=== PATIENT | male | born 1960 | race Caucasian/White ===

== ENCOUNTER 2017-08-25 14:22 | Inpatient (IN) ==
[2017-08-25] MEDS ORDERED: HYDROmorphone 2 MG/1 ML VIAL IV STA (14:43)
[2017-08-25] MEDS ORDERED: ONDANSETRON 4 MG/2 ML VIAL IV STA (14:43)
[2017-08-25 14:55] LABS: Basophils % 0.4 % (0.0-0.8); Eosinophils % 0.4 % (0.00-10.9); Hematocrit 43.4 VOL% (42.0-52.0); Hemoglobin 14.7 GM/DL (14.0-18.0); Immature Granulocytes % 0.4 %; Immature Granulocytes Absolute 0.03 #; Lymphocytes # 1.1 10*3/uL (1.4-4.0); Lymphocytes % 14.3 % (21.2-54.2); Mean Corpuscular HGB Conc 33.9 GM/DL (32-36); Mean Corpuscular Hemoglobin 29 PG (27-34); Mean Corpuscular Volume 86.6 FL (87-102); Mean Platelet Volume 12.4 FL (9.6-12.0); Monocytes # 0.5 10*3/uL (0.11-0.8); Neutrophils % 78.5 % (38.7-73.9); Platelet Count 159 T/CUMM (130-400); Red Blood Count 5.01 MC/CUMM (3.8-5.5); Red Cell Distribution Width 15.2 % (9.3-17.3); White Blood Count 7.7 T/CUMM (4-12)
[2017-08-25 15:04] LABS: INR 1.3; PT Patient Result 13.4 SECS; Partial Thromboplastin Time 31.7 SECS (0-40)
[2017-08-25 15:16] LABS: Albumin 3.7 G/DL (3.4-5.0); Bilirubin,Total 0.5 MG/DL (0.2-1.0); Osmolality,Calculated 285.1 MOS/KG (273-304); Potassium 3.8 MMOL/L (3.5-5.1); Total Protein 6.4 G/DL (6.4-8.3); Uric Acid 6.1 MG/DL (3.5-7.2)
[2017-08-25] MEDS ORDERED: HYDROmorphone 2 MG/1 ML VIAL ONE (16:02)
[2017-08-25] MEDS ORDERED: ONDANSETRON 4 MG/2 ML VIAL ONE (16:02)
[2017-08-25] MEDS ORDERED: MAGNESIUM HYDROXIDE SUSP 30 ML UDCUP PO PRN (16:21)
[2017-08-25] MEDS ORDERED: PROMETHAZINE INJ 25 MG in SODIUM CHLORIDE 0.9% 50 ML IV PRN (16:21)
[2017-08-25] MEDS ORDERED: ACETAMINOPHEN 325 MG TABLET PO PRN (16:21)
[2017-08-25] MEDS ORDERED: ONDANSETRON 4 MG/2 ML VIAL IV PRN (16:21)
[2017-08-25] MEDS ORDERED: diphenhydrAMINE CAP 25 MG CAPSULE PO PRN (16:21)
[2017-08-25] MEDS ORDERED: chlorproMAZINE INJ 50 MG in SODIUM CHLORIDE 0.9% 100 ML IV PRN (16:21)
[2017-08-25] MEDS ORDERED: traMADol 50 MG TABLET PO PRN (16:21)
[2017-08-25] MEDS ORDERED: chlorproMAZINE 25 MG TABLET PO PRN (16:21)
[2017-08-25] MEDS ORDERED: LACTULOSE 20 GM/30 ML UDCUP PO PRN (16:21)
[2017-08-25] MEDS ORDERED: MYLANTA/LIDO VISC 2:1 300 ML BOTTLE SWISH/SWAL PRN (16:21)
[2017-08-25] MEDS ORDERED: LOPERAMIDE 2 MG CAPSULE PO PRN ×2 (16:21)
[2017-08-25] MEDS ORDERED: MYLANTA/LIDO VISC 2:1 300 ML BOTTLE SWISH/SPIT PRN (16:21)
[2017-08-25] MEDS ORDERED: TEMAZEPAM 7.5 MG CAPSULE PO PRN (16:21)
[2017-08-25] MEDS ORDERED: BENZTROPINE 2 MG/2 ML AMP IV PRN (16:21)
[2017-08-25] MEDS ORDERED: chlorproMAZINE INJ 25 MG in SODIUM CHLORIDE 0.9% 100 ML IV PRN (16:21)
[2017-08-25] MEDS ORDERED: guaiFENesin 200 MG/10 ML UDCUP PO PRN (16:21)
[2017-08-25] MEDS ORDERED: ALUMINUM/MAGNES/SIMETH MAX STR 30 ML UDCUP PO PRN (16:21)
[2017-08-25] MEDS ORDERED: DEXTROSE 5% NACL 0.45% 1,000 ML IV SCH (17:00)
[2017-08-25 19:23] LABS: Apearance,Urine CLEAR (Clear); Bilirubin,Urine Negative (Negative); Blood, Urine Negative (Negative); Glucose,Urine (UA) Negative (Negative); Ketones,Urine Negative (Negative); Nitrite,Urine Negative (Negative); Protein,Urine Negative; RBC,Urine 2 /HPF (0-4); Squamous Epithelial Cell,Urine Occasional /HPF (0-10); Urine Color Yellow (Yellow); Urine Specific Gravity 1.057 (1.001-1.035); Urine Urobilinogen < 2.0 EU/DL (0.2-1.0); WBC,Urine 2 /HPF (0-6)
[2017-08-25] MEDS ORDERED: HYDROmorphone 2 MG/1 ML VIAL IV PRN (23:33)
[2017-08-26 06:12] LABS: Albumin 3.5 G/DL (3.4-5.0); Bilirubin,Total 0.8 MG/DL (0.2-1.0); Calcium 8.1 MG/DL (8.5-10.1); Osmolality,Calculated 279.4 MOS/KG (273-304); Potassium 4.1 MMOL/L (3.5-5.1); Total Protein 6.1 G/DL (6.4-8.3)
[2017-08-26] MEDS: DEXTROSE 5% NACL 0.45% 1,000 ML IV SCH ×3 (06:44→22:11)
[2017-08-26 07:09] LABS: Basophils # 0.1 10*3/uL (0.0-0.2); Basophils % 0.7 % (0.0-0.8); Eosinophils # 0.1 10*3/uL (0.0-0.87); Hematocrit 43.5 VOL% (42.0-52.0); Hemoglobin 14.3 GM/DL (14.0-18.0); Immature Granulocytes % 0.6 %; Immature Granulocytes Absolute 0.04 #; Lymphocytes # 1.1 10*3/uL (1.4-4.0); Lymphocytes % 15.9 % (21.2-54.2); Mean Corpuscular HGB Conc 32.9 GM/DL (32-36); Mean Corpuscular Hemoglobin 29 PG (27-34); Mean Corpuscular Volume 88.6 FL (87-102); Mean Platelet Volume 12.1 FL (9.6-12.0); Monocytes # 0.7 10*3/uL (0.11-0.8); Neutrophils % 70.8 % (38.7-73.9); Platelet Count 142 T/CUMM (130-400); Red Blood Count 4.91 MC/CUMM (3.8-5.5); Red Cell Distribution Width 15.4 % (9.3-17.3); White Blood Count 7.1 T/CUMM (4-12)
[2017-08-26] MEDS ORDERED: LIDOCAINE 1%/EPI INJ 20 ML VIAL MISC INJ ONE (07:24)
[2017-08-26] MEDS ORDERED: LIDOCAINE 1% 20 ML VIAL MISC INJ ONE (07:27)
[2017-08-26] MEDS: ALPRAZolam 0.25 MG TABLET PO PRN (14:00)
[2017-08-26] MEDS ORDERED: FUROSEMIDE 40 MG TABLET PO ONE (20:09)
[2017-08-26] MEDS: GABAPENTIN 300 MG CAPSULE PO SCH (20:32)
[2017-08-27 05:15] LABS: Basophils % 0.4 % (0.0-0.8); Eosinophils # 0.2 10*3/uL (0.0-0.87); Eosinophils % 2.3 % (0.00-10.9); Hematocrit 41.2 VOL% (42.0-52.0); Hemoglobin 13.9 GM/DL (14.0-18.0); Immature Granulocytes % 0.3 %; Immature Granulocytes Absolute 0.02 #; Lymphocytes # 0.8 10*3/uL (1.4-4.0); Lymphocytes % 11.5 % (21.2-54.2); Mean Corpuscular HGB Conc 33.7 GM/DL (32-36); Mean Corpuscular Hemoglobin 29 PG (27-34); Mean Corpuscular Volume 86.7 FL (87-102); Mean Platelet Volume 12.6 FL (9.6-12.0); Monocytes # 0.8 10*3/uL (0.11-0.8); Monocytes % 10.6 % (1.7-12.7); Neutrophils # 5.3 10*3/uL (1.4-7.4); Neutrophils % 74.9 % (38.7-73.9); Platelet Count 147 T/CUMM (130-400); Red Blood Count 4.75 MC/CUMM (3.8-5.5); Red Cell Distribution Width 15.1 % (9.3-17.3); White Blood Count 7.1 T/CUMM (4-12)
[2017-08-27 05:55] LABS: Albumin 3.4 G/DL (3.4-5.0); Bilirubin,Total 0.4 MG/DL (0.2-1.0); Calcium 8.1 MG/DL (8.5-10.1); Osmolality,Calculated 283.1 MOS/KG (273-304); Potassium 3.7 MMOL/L (3.5-5.1)
[2017-08-27] MEDS: ALPRAZolam 0.25 MG TABLET PO PRN (09:53)
[2017-08-27] MEDS: GABAPENTIN 300 MG CAPSULE PO SCH ×2 (09:53→20:21)
[2017-08-27] MEDS: DEXTROSE 5% NACL 0.45% 1,000 ML IV SCH (11:41)
[2017-08-28] MEDS: DEXTROSE 5% NACL 0.45% 1,000 ML IV SCH (01:25)
[2017-08-28 06:21] LABS: Basophils # 0.1 10*3/uL (0.0-0.2); Basophils % 0.8 % (0.0-0.8); Eosinophils # 0.2 10*3/uL (0.0-0.87); Eosinophils % 3.3 % (0.00-10.9); Hematocrit 41.5 VOL% (42.0-52.0); Hemoglobin 14.4 GM/DL (14.0-18.0); Immature Granulocytes % 0.3 %; Immature Granulocytes Absolute 0.02 #; Lymphocytes # 0.7 10*3/uL (1.4-4.0); Lymphocytes % 11.6 % (21.2-54.2); Mean Corpuscular HGB Conc 34.7 GM/DL (32-36); Mean Corpuscular Hemoglobin 30 PG (27-34); Mean Corpuscular Volume 85.4 FL (87-102); Mean Platelet Volume 12.4 FL (9.6-12.0); Monocytes # 0.8 10*3/uL (0.11-0.8); Neutrophils # 4.6 10*3/uL (1.4-7.4); Platelet Count 155 T/CUMM (130-400); Red Blood Count 4.86 MC/CUMM (3.8-5.5); Red Cell Distribution Width 14.8 % (9.3-17.3); White Blood Count 6.4 T/CUMM (4-12)
[2017-08-28 06:57] LABS: Albumin 3.3 G/DL (3.4-5.0); Bilirubin,Total 0.7 MG/DL (0.2-1.0); Calcium 8.1 MG/DL (8.5-10.1); Potassium 3.7 MMOL/L (3.5-5.1); Total Protein 5.7 G/DL (6.4-8.3)
[2017-08-28] MEDS: GABAPENTIN 300 MG CAPSULE PO SCH (08:54)
[2017-08-28 09:37] VITALS: BP 138/84
== END 2017-08-28 11:25 | disposition home or self-care (01) | DRG 552 ==
LOC: EDUNIT# → N.ED 14:22 → N.EDINP 16:21 → N.4E 17:25
PROVIDERS: ADMIT Specialist; ATTEND Specialist

== ENCOUNTER 2020-05-17 13:20 | Inpatient (IN) ==
[2020-05-18] MEDS ORDERED: GLUCAGON 1 MG VIAL IM PRN ×2 (09:12)
[2020-05-18] MEDS ORDERED: CEFUROXIME INJ 1,500 MG in SYRINGE 1 EACH IV ONE (09:12)
[2020-05-18] MEDS ORDERED: DEXTROSE 50% 25 GM/50 ML VIAL IV PRN ×2 (09:12)
[2020-05-18] MEDS ORDERED: SODIUM CHLORIDE 0.9% 1,000 ML IV SCH (09:30)
[2020-05-18 10:12] LABS: Basophils % 0.5 % (0.0-0.8); Eosinophils # 0.1 10*3/uL (0.0-0.87); Eosinophils % 1.5 % (0.00-10.9); Hematocrit 51.7 VOL% (42.0-52.0); Hemoglobin 17.1 GM/DL (14.0-18.0); Immature Granulocytes % 0.6 %; Immature Granulocytes Absolute 0.05 #; Lymphocytes # 1.3 10*3/uL (1.4-4.0); Lymphocytes % 16.3 % (21.2-54.2); Mean Corpuscular HGB Conc 33.1 GM/DL (32-36); Mean Corpuscular Volume 89.8 FL (87-102); Mean Platelet Volume 11.9 FL (9.6-12.0); Monocytes % 10.7 % (1.7-12.7); Neutrophils % 70.4 % (38.7-73.9); Platelet Count 173 T/CUMM (130-400); Red Blood Count 5.76 MC/CUMM (3.8-5.5); Red Cell Distribution Width 14.6 % (9.3-17.3)
[2020-05-18 10:52] LABS: Albumin 3.9 G/DL (3.4-5.0); Bilirubin,Total 0.5 MG/DL (0.2-1.0); Calcium 9.8 MG/DL (8.5-10.1); Osmolality,Calculated 278.8 MOS/KG (273-304); Total Protein 7.7 G/DL (6.4-8.3)
[2020-05-18] MEDS ORDERED: DIAZEPAM 5 MG TABLET PO ONE (11:36)
[2020-05-18] MEDS ORDERED: FAMOTIDINE 20 MG TABLET PO ONE (11:36)
[2020-05-18] MEDS ORDERED: ZALEPLON 5 MG CAPSULE PO PRN (12:16)
[2020-05-18] MEDS ORDERED: CLORAZEPATE 3.75 MG TABLET PO PRN (12:16)
[2020-05-18] MEDS ORDERED: NITROGLYCERIN SL 0.4 MG TABLET SL PRN (12:20)
[2020-05-18] MEDS ORDERED: ONDANSETRON 4 MG/2 ML VIAL IV PRN (12:20)
[2020-05-18] MEDS ORDERED: MORPHINE 4 MG/1 ML VIAL IV PRN (12:20)
[2020-05-18] MEDS ORDERED: hydrALAZINE 20 MG/1 ML VIAL IV PRN (12:21)
[2020-05-18 14:07] LABS: ABG Base Excess 2.6 MMOL/L (-2.5-2.5); ABG HCO3 27.1 MMOL/L (20-26); ABG PCO2 41.5 MM HG (35-48); ABG PH 7.433 (7.35-7.45); ABG TCO2 28.4 MMOL/L (23-27)
[2020-05-18] MEDS: INSULIN REGULAR 100 UNIT/ML SUBCUT SCH ×2 (16:45→20:41)
[2020-05-18] MEDS: CHLORHEXIDINE 4% SOLN 118 ML BOTTLE TOP SCH ×2 (18:23→22:27)
[2020-05-18] MEDS: CHLORHEXIDINE 0.12% ORAL RINSE 60 ML BOTTLE SWISH/SPIT SCH (20:04)
[2020-05-19] MEDS ORDERED: VANCOMYCIN 500 MG VIAL ONE (05:19)
[2020-05-19] MEDS ORDERED: VANCOMYCIN 1,000 MG VIAL ONE (05:19)
[2020-05-19] MEDS ORDERED: PAPAVERINE 60 MG/2 ML VIAL ONE (05:25)
[2020-05-19] MEDS ORDERED: DIAZEPAM 5 MG TABLET PO ONE (06:00)
[2020-05-19] MEDS ORDERED: CEFUROXIME INJ 1,500 MG in SYRINGE 1 EACH IV ONE (06:00)
[2020-05-19] MEDS ORDERED: FAMOTIDINE 20 MG TABLET PO ONE (06:00)
[2020-05-19] MEDS ORDERED: SUFentanil 250 MCG/5 ML AMP ONE (06:05)
[2020-05-19] MEDS ORDERED: MINERAL OIL/PETROLATUM OPH OINT 3.5 GM TUBE ONE (06:06)
[2020-05-19] MEDS ORDERED: MIDAZOLAM 10 MG/2 ML VIAL ONE (06:06)
[2020-05-19] MEDS: INSULIN REGULAR 100 UNIT/ML SUBCUT SCH ×4 (07:30→19:26)
[2020-05-19 07:52] LABS: ABG Base Excess 2.1 MMOL/L (-2.5-2.5); ABG HCO3 26.3 MMOL/L (20-26); ABG PH 7.436 (7.35-7.45); ABG TCO2 22.2 MMOL/L (23-27); Glucose Heart Surgery 110 MG/DL (74-106); Ionized Calcium Arterial 1.16 MMOL/L (1.21-1.46); PH Patient Temp Arterial 7.436; Patient Temperature 37 CELCIUS; Potassium Heart/CVR 3.8 MMOL/L (3.5-5.1); Sodium Heart/CVR 139 MMOL/L (135-145)
[2020-05-19 08:23] LABS: Apearance,Urine CLEAR (Clear); Bilirubin,Urine Negative (Negative); Blood, Urine Negative (Negative); Glucose,Urine (UA) Negative (Negative); Ketones,Urine Negative (Negative); Nitrite,Urine Negative (Negative); Protein,Urine Negative; RBC,Urine <1 /HPF (0-4); Urine Color Yellow (Yellow); Urine Specific Gravity 1.011 (1.001-1.035); Urine Urobilinogen < 2.0 EU/DL (0.2-1.0); WBC,Urine <1 /HPF (0-6)
[2020-05-19] MEDS: CHLORHEXIDINE 4% SOLN 118 ML BOTTLE TOP SCH (09:00)
[2020-05-19] MEDS: CHLORHEXIDINE 0.12% ORAL RINSE 60 ML BOTTLE SWISH/SPIT SCH ×2 (09:00→21:20)
[2020-05-19 09:36] LABS: Hematocrit Heart Surgery 32.8 PERCENT (42-52); Hemoglobin Heart Surgery 10.6 G/DL (14.0-18.0); PCO2 Patient Temp Venous 35.5 MM HG; PH Patient Temp Venous 7.472; PO2 Patient Temp Venous 42.5 MM HG; Potassium Heart/CVR 4.1 MMOL/L (3.5-5.1); VBG Base Excess 2.5 MEQ/L (0-4); VBG HCO3 26.4 MEQ/L (24-28); VBG Oxygen Saturation 84.3 %; VBG PCO2 39.2 MMHG (41-51); VBG PH 7.442; VBG PO2 48.8 MMHG (17-40)
[2020-05-19] MEDS ORDERED: diphenhydrAMINE 50 MG/1 ML VIAL ONE (10:03)
[2020-05-19] MEDS ORDERED: FAMOTIDINE 20 MG/2 ML VIAL IV ONE (10:03)
[2020-05-19 10:06] LABS: Hematocrit Heart Surgery 32.9 PERCENT (42-52); Hemoglobin Heart Surgery 10.7 G/DL (14.0-18.0); PCO2 Patient Temp Venous 35.5 MM HG; PH Patient Temp Venous 7.467; PO2 Patient Temp Venous 44.2 MM HG; Potassium Heart/CVR 4.4 MMOL/L (3.5-5.1); VBG Base Excess 2.1 MEQ/L (0-4); VBG Oxygen Saturation 79.8 %; VBG PCO2 37.2 MMHG (41-51); VBG PH 7.452; VBG PO2 47.3 MMHG (17-40)
[2020-05-19 10:31] LABS: ABG Base Excess 0.8 MMOL/L (-2.5-2.5); ABG HCO3 25.2 MMOL/L (20-26); ABG PH 7.443 (7.35-7.45); ABG TCO2 21.9 MMOL/L (23-27); Glucose Heart Surgery 199 MG/DL (74-106); Hematocrit Heart Surgery 34.8 PERCENT (42-52); Hemoglobin Heart Surgery 11.3 G/DL (14.0-18.0); Ionized Calcium Arterial 1.19 MMOL/L (1.21-1.46); PH Patient Temp Arterial 7.443; Patient Temperature 37 CELCIUS; Potassium Heart/CVR 3.8 MMOL/L (3.5-5.1); Sodium Heart/CVR 131 MMOL/L (135-145)
[2020-05-19] MEDS ORDERED: MANNITOL 100 GM/500 ML BAG IV ONE (10:40)
[2020-05-19] MEDS ORDERED: DEXTROSE 5% KCL 20 MEQ 20 MEQ/1,000 ML BAG IV ONE (10:40)
[2020-05-19] MEDS ORDERED: LIDOCAINE 2% 5 ML VIAL ONE (10:40)
[2020-05-19] MEDS ORDERED: SODIUM BICARBONATE 50 MEQ/50 ML VIAL IV ONE ×2 (10:41→11:02)
[2020-05-19] MEDS ORDERED: methylPREDNISolone SOD SUC 1,000 MG/8 ML VIAL ONE (10:41)
[2020-05-19] MEDS ORDERED: PROTAMINE SULFATE 50 MG/5 ML VIAL IV ONE ×2 (10:41→11:41)
[2020-05-19] MEDS ORDERED: FUROSEMIDE 20 MG/2 ML VIAL ONE (10:41)
[2020-05-19] MEDS ORDERED: MAGNESIUM SULFATE 5 GM/10 ML VIAL IV ONE (10:41)
[2020-05-19] MEDS ORDERED: ALBUMIN 25% 25 GM/100 ML VIAL IV ONE (10:41)
[2020-05-19] MEDS ORDERED: PROTAMINE SULFATE 250 MG/25 ML VIAL IV ONE (10:41)
[2020-05-19] MEDS ORDERED: HEPARIN 10,000 UNIT/10 ML VIAL ONE (10:41)
[2020-05-19] MEDS ORDERED: PHENYLEPHRINE DRIP 40 MG/250 ML PREMIX IV ONE (11:02)
[2020-05-19] MEDS ORDERED: NITROPRUSSIDE 50 MG/2 ML VIAL ONE (11:02)
[2020-05-19] MEDS ORDERED: CALCIUM CHLORIDE 1,000 MG/10 ML SYRINGE IV ONE (11:02)
[2020-05-19] MEDS ORDERED: POTASSIUM CHLORIDE RIDER 100 ML IV ONE ×2 (11:02→12:05)
[2020-05-19] MEDS ORDERED: ONDANSETRON 4 MG/2 ML VIAL IV PRN (11:35)
[2020-05-19] MEDS ORDERED: NITROPRUSSIDE 100 MG in DEXTROSE 5% 250 ML IV PRN (11:35)
[2020-05-19] MEDS ORDERED: VECURONIUM 10 MG VIAL IV PRN ×2 (11:35)
[2020-05-19] MEDS ORDERED: MIDAZOLAM 2 MG/2 ML VIAL IV PRN (11:35)
[2020-05-19] MEDS ORDERED: CALCIUM CHLORIDE 1,000 MG/10 ML SYRINGE IV PRN (11:35)
[2020-05-19] MEDS ORDERED: DEXTROSE 50% 25 GM/50 ML VIAL IV PRN ×2 (11:35)
[2020-05-19] MEDS ORDERED: INSULIN REGULAR 100 UNIT/ML IV ONE (11:35)
[2020-05-19] MEDS ORDERED: SODIUM CHLORIDE 0.45% 1,000 ML IV SCH ×2 (11:35)
[2020-05-19] MEDS ORDERED: CHLORHEXIDINE 4% SOLN 118 ML BOTTLE TOP PRN (11:35)
[2020-05-19] MEDS ORDERED: MAGNESIUM SULF RIDER 2 GM in PREMIX 1 EACH IV PRN (11:35)
[2020-05-19] MEDS ORDERED: INSULIN REGULAR 100 UNIT/ML IV PRN (11:35)
[2020-05-19] MEDS ORDERED: MIDAZOLAM 10 MG/2 ML VIAL IV PRN (11:35)
[2020-05-19] MEDS ORDERED: ACETAMINOPHEN 650 MG SUPP RECTAL PRN (11:35)
[2020-05-19] MEDS ORDERED: PHENYLEPHRINE DRIP 40 MG/250 ML PREMIX IV PRN (11:35)
[2020-05-19] MEDS ORDERED: MAGNESIUM SULF RIDER 4 GM in PREMIX 1 EACH IV PRN (11:35)
[2020-05-19] MEDS ORDERED: POTASSIUM CHLORIDE RIDER 10 MEQ in PREMIX 1 EACH IV PRN (11:35)
[2020-05-19] MEDS ORDERED: MORPHINE 10 MG/1 ML VIAL IV PRN (11:35)
[2020-05-19 11:44] LABS: ABG Base Excess 0.3 MMOL/L (-2.5-2.5); ABG HCO3 24.7 MMOL/L (20-26); ABG Oxygen Saturation 99.6 % (95-100); ABG PCO2 40.9 MM HG (35-48); ABG PH 7.397 (7.35-7.45); Glucose Heart Surgery 168 MG/DL (74-106); Hematocrit Heart Surgery 39.5 PERCENT (42-52); Hemoglobin Heart Surgery 12.9 G/DL (14.0-18.0); Potassium Heart/CVR 3.7 MMOL/L (3.5-5.1)
[2020-05-19 11:47] LABS: Basophils % 0.4 % (0.0-0.8); Eosinophils # 0.1 10*3/uL (0.0-0.87); Eosinophils % 0.6 % (0.00-10.9); Hematocrit 39.6 VOL% (42.0-52.0); Immature Granulocytes % 0.9 %; Lymphocytes # 0.9 10*3/uL (1.4-4.0); Lymphocytes % 7.7 % (21.2-54.2); Mean Corpuscular HGB Conc 32.8 GM/DL (32-36); Mean Platelet Volume 11.7 FL (9.6-12.0); Monocytes % 7.7 % (1.7-12.7); Neutrophils % 82.7 % (38.7-73.9); Platelet Count 138 T/CUMM (130-400); Red Blood Count 4.35 MC/CUMM (3.8-5.5); Red Cell Distribution Width 14.3 % (9.3-17.3); White Blood Count 11.2 T/CUMM (4-12)
[2020-05-19] MEDS: POTASSIUM CHLORIDE RIDER 20 MEQ in PREMIX 1 EACH IV PRN ×4 (11:50→22:29)
[2020-05-19 11:55] LABS: INR 1.3; PT Patient Result 13.9 SECS (9.8-11.9); Partial Thromboplastin Time 34.4 SECS (23.9-33.8)
[2020-05-19 12:09] LABS: CKMB % 5.9 %
[2020-05-19] MEDS ORDERED: ALBUMIN 5% 12.5 GM/250 ML VIAL IV ONE (12:12)
[2020-05-19 12:14] LABS: Troponin I 4.34 NG/ML (0.00-0.045)
[2020-05-19] MEDS: LACTATED RINGERS 250 ML IV PRN ×2 (12:30→14:05)
[2020-05-19 12:40] LABS: Albumin 3.2 G/DL (3.4-5.0); Bilirubin,Total 1.2 MG/DL (0.2-1.0); Calcium 9.2 MG/DL (8.5-10.1); Osmolality,Calculated 278.8 MOS/KG (273-304); Total Protein 5.9 G/DL (6.4-8.3)
[2020-05-19] MEDS: INSULIN REGULAR DRIP 100 ML IV SCH ×2 (13:00→21:15)
[2020-05-19] MEDS ORDERED: CALCIUM CHLORIDE 1,000 MG/10 ML VIAL IV ONE (14:03)
[2020-05-19] MEDS ORDERED: PHENYLEPHRINE DRIP 20 MG/250 ML PREMIX IV ONE (14:03)
[2020-05-19] MEDS ORDERED: SODIUM CHLORIDE 0.9% 250 ML IV ONE (14:04)
[2020-05-19] MEDS ORDERED: NITROGLYCERIN DRIP 50 MG/250 ML BOTTLE IV ONE (14:04)
[2020-05-19] MEDS ORDERED: HEPARIN/NACL 0.9% 2 UNITS/ML 500 ML IV ONE (14:04)
[2020-05-19] MEDS ORDERED: SODIUM CHLORIDE 0.9% 100 ML IV ONE (14:04)
[2020-05-19] MEDS ORDERED: SEVOFLURANE 1 UNIT/15 MINUTE INH ONE (14:04)
[2020-05-19] MEDS ORDERED: AMINOCAPROIC ACID 5,000 MG/20 ML VIAL ONE (14:04)
[2020-05-19] MEDS ORDERED: ETOMIDATE 40 MG/20 ML VIAL IV ONE (14:04)
[2020-05-19] MEDS ORDERED: VECURONIUM 10 MG VIAL IV ONE (14:04)
[2020-05-19] MEDS ORDERED: SODIUM CHLORIDE 0.9% 1,000 ML IV ONE (14:04)
[2020-05-19] MEDS ORDERED: ESMOLOL 100 MG/10 ML VIAL IV ONE (14:04)
[2020-05-19] MEDS ORDERED: LACTATED RINGERS 1,000 ML IV ONE (14:04)
[2020-05-19 14:20] LABS: ABG Base Excess -0.7 MMOL/L (-2.5-2.5); ABG HCO3 23.8 MMOL/L (20-26); ABG Oxygen Saturation 98.4 % (95-100); ABG PCO2 41.3 MM HG (35-48); ABG PH 7.379 (7.35-7.45); Glucose Heart Surgery 149 MG/DL (74-106); Hematocrit Heart Surgery 43.4 PERCENT (42-52); Hemoglobin Heart Surgery 14.1 G/DL (14.0-18.0); Potassium Heart/CVR 4.2 MMOL/L (3.5-5.1)
[2020-05-19] MEDS: MORPHINE 4 MG/1 ML VIAL IV PRN (15:55)
[2020-05-19] MEDS ORDERED: INSULIN REGULAR 100 UNIT/ML SUBCUT SCH (16:00)
[2020-05-19] MEDS: CEFUROXIME INJ 1,500 MG in SYRINGE 1 EACH IV SCH (18:35)
[2020-05-19 19:21] LABS: ABG Base Excess -3.4 MMOL/L (-2.5-2.5); ABG HCO3 21.6 MMOL/L (20-26); ABG Oxygen Saturation 97.1 % (95-100); ABG PH 7.294 (7.35-7.45); ABG TCO2 20.7 MMOL/L (23-27); Glucose Heart Surgery 211 MG/DL (74-106); Hemoglobin Heart Surgery 14.7 G/DL (14.0-18.0); Potassium Heart/CVR 4.8 MMOL/L (3.5-5.1)
[2020-05-19 19:49] LABS: CKMB % 6.7 %
[2020-05-19 19:55] LABS: Troponin I 8.5 NG/ML (0.00-0.045)
[2020-05-19] MEDS: ALBUMIN 5% 12.5 GM in PREMIX 1 EACH IV PRN ×2 (20:15→20:37)
[2020-05-19 20:32] LABS: ABG Base Excess -5.7 MMOL/L (-2.5-2.5); ABG HCO3 19.8 MMOL/L (20-26); ABG Oxygen Saturation 98.2 % (95-100); ABG PCO2 40.9 MM HG (35-48); ABG PH 7.306 (7.35-7.45); ABG TCO2 17.9 MMOL/L (23-27); Glucose Heart Surgery 205 MG/DL (74-106); Hematocrit Heart Surgery 42.2 PERCENT (42-52); Hemoglobin Heart Surgery 13.7 G/DL (14.0-18.0); Potassium Heart/CVR 4.4 MMOL/L (3.5-5.1)
[2020-05-19] MEDS ORDERED: FUROSEMIDE 40 MG/4 ML VIAL IV ONE (22:03)
[2020-05-19 22:20] LABS: ABG Base Excess -5.5 MMOL/L (-2.5-2.5); ABG HCO3 19.9 MMOL/L (20-26); ABG Oxygen Saturation 97.9 % (95-100); ABG PCO2 42.3 MM HG (35-48); ABG TCO2 18.4 MMOL/L (23-27); Glucose Heart Surgery 203 MG/DL (74-106); Hematocrit Heart Surgery 39.7 PERCENT (42-52); Hemoglobin Heart Surgery 12.9 G/DL (14.0-18.0); Potassium Heart/CVR 4.1 MMOL/L (3.5-5.1)
[2020-05-19 23:20] LABS: ABG Base Excess -5.2 MMOL/L (-2.5-2.5); ABG HCO3 20.2 MMOL/L (20-26); ABG Oxygen Saturation 98.4 % (95-100); ABG PH 7.333 (7.35-7.45); ABG TCO2 17.8 MMOL/L (23-27); Glucose Heart Surgery 188 MG/DL (74-106); Hematocrit Heart Surgery 39.9 PERCENT (42-52); Potassium Heart/CVR 4.4 MMOL/L (3.5-5.1)
[2020-05-20 00:20] LABS: ABG HCO3 20.7 MMOL/L (20-26); ABG PCO2 40.9 MM HG (35-48); ABG PH 7.323 (7.35-7.45); ABG PO2 114.2 MM HG (80-95); Glucose Heart Surgery 179 MG/DL (74-106); Potassium Heart/CVR 4.5 MMOL/L (3.5-5.1)
[2020-05-20 00:21] LABS: ABG Oxygen Saturation 97.9 % (95-100)
[2020-05-20 01:09] LABS: ABG Base Excess -5.1 MMOL/L (-2.5-2.5); ABG HCO3 19.3 MMOL/L (20-26); ABG PCO2 34.5 MM HG (35-48); ABG PH 7.366 (7.35-7.45); ABG PO2 103.3 MM HG (80-95); ABG TCO2 20.4 MMOL/L (23-27); Glucose Heart Surgery 158 MG/DL (74-106); Potassium Heart/CVR 4.2 MMOL/L (3.5-5.1)
[2020-05-20 01:10] LABS: ABG Oxygen Saturation 97.6 % (95-100)
[2020-05-20] MEDS: MORPHINE 4 MG/1 ML VIAL IV PRN ×3 (01:40→08:00)
[2020-05-20 02:20] LABS: ABG Base Excess -4.6 MMOL/L (-2.5-2.5); ABG HCO3 20.6 MMOL/L (20-26); ABG Oxygen Saturation 95.5 % (95-100); ABG PCO2 40.1 MM HG (35-48); ABG PH 7.329 (7.35-7.45); ABG PO2 82.1 MM HG (80-95); ABG TCO2 18.8 MMOL/L (23-27); Glucose Heart Surgery 154 MG/DL (74-106); Hematocrit Heart Surgery 38.1 PERCENT (42-52); Hemoglobin Heart Surgery 12.4 G/DL (14.0-18.0); Potassium Heart/CVR 3.8 MMOL/L (3.5-5.1)
[2020-05-20] MEDS: POTASSIUM CHLORIDE RIDER 20 MEQ in PREMIX 1 EACH IV PRN (02:30)
[2020-05-20 03:40] LABS: ABG Base Excess -3.9 MMOL/L (-2.5-2.5); ABG HCO3 21.1 MMOL/L (20-26); ABG Oxygen Saturation 96.8 % (95-100); ABG PCO2 37.7 MM HG (35-48); ABG PH 7.356 (7.35-7.45); ABG PO2 89.4 MM HG (80-95); ABG TCO2 18.8 MMOL/L (23-27); Glucose Heart Surgery 141 MG/DL (74-106); Hematocrit Heart Surgery 36.9 PERCENT (42-52)
[2020-05-20 03:53] LABS: Basophils % 0.1 % (0.0-0.8); Hematocrit 39.9 VOL% (42.0-52.0); Hemoglobin 13.1 GM/DL (14.0-18.0); Immature Granulocytes % 0.5 %; Immature Granulocytes Absolute 0.07 #; Lymphocytes # 0.4 10*3/uL (1.4-4.0); Lymphocytes % 2.4 % (21.2-54.2); Mean Corpuscular HGB Conc 32.8 GM/DL (32-36); Mean Corpuscular Volume 91.3 FL (87-102); Monocytes % 4.9 % (1.7-12.7); Neutrophils % 92.1 % (38.7-73.9); Platelet Count 139 T/CUMM (130-400); Red Blood Count 4.37 MC/CUMM (3.8-5.5); Red Cell Distribution Width 14.4 % (9.3-17.3); White Blood Count 15.2 T/CUMM (4-12)
[2020-05-20 04:12] LABS: Albumin 4.1 G/DL (3.4-5.0); Bilirubin,Direct 0.17 MG/DL (0.0-0.20); Bilirubin,Total 0.6 MG/DL (0.2-1.0); CKMB % 5.7 %; Calcium 8.9 MG/DL (8.5-10.1); Osmolality,Calculated 287.4 MOS/KG (273-304); Total Protein 6.4 G/DL (6.4-8.3)
[2020-05-20 04:13] LABS: Troponin I 8.2 NG/ML (0.00-0.045)
[2020-05-20 04:38] LABS: Band Neutrophils 1 % (0-10); Lymphocytes 1 % (20-55); Segmented Neutrophils 94 % (50-85); Total Cells Counted 100
[2020-05-20 04:39] LABS: Anisocytosis 1+; Platelet Estimate Normal
[2020-05-20] MEDS: CEFUROXIME INJ 1,500 MG in SYRINGE 1 EACH IV SCH ×2 (06:20→18:09)
[2020-05-20] MEDS: METOPROLOL SUCCINATE XL 25 MG TABLET PO SCH (07:59)
[2020-05-20] MEDS: ROSUVASTATIN 20 MG TABLET PO SCH (07:59)
[2020-05-20] MEDS: CHLORHEXIDINE 0.12% ORAL RINSE 60 ML BOTTLE SWISH/SPIT SCH ×2 (07:59→21:01)
[2020-05-20] MEDS ORDERED: INSULIN REGULAR 100 UNIT/ML SUBCUT SCH ×3 (08:00→16:30)
[2020-05-20] MEDS: ONDANSETRON 4 MG/2 ML VIAL IV PRN (09:12)
[2020-05-20] MEDS ORDERED: SODIUM CHLOR 0.45% KCL 20 MEQ 20 MEQ/1,000 ML BAG IV SCH (09:36)
[2020-05-20] MEDS ORDERED: POTASSIUM CHLORIDE 20 MEQ TABLET PO PRN (09:36)
[2020-05-20] MEDS ORDERED: ALUMINUM/MAGNES/SIMETH MAX STR 30 ML UDCUP PO PRN (09:36)
[2020-05-20] MEDS ORDERED: MAGNESIUM SULF RIDER 2 GM in PREMIX 1 EACH IV PRN (09:36)
[2020-05-20] MEDS ORDERED: DEXTROSE 50% 25 GM/50 ML VIAL IV PRN (09:36)
[2020-05-20] MEDS ORDERED: GLUCAGON 1 MG VIAL IM PRN (09:36)
[2020-05-20] MEDS ORDERED: ZALEPLON 5 MG CAPSULE PO PRN (09:36)
[2020-05-20] MEDS ORDERED: MAGNESIUM SULF RIDER 4 GM in PREMIX 1 EACH IV PRN (09:36)
[2020-05-20] MEDS: ASPIRIN EC 325 MG TABLET PO SCH (10:11)
[2020-05-20] MEDS: oxyCODONE/ACETAMINOPHEN 5-325 MG TABLET PO PRN ×3 (10:37→21:06)
[2020-05-20 13:59] LABS: CKMB % 3.7 %
[2020-05-20 14:00] LABS: Troponin I 6.43 NG/ML (0.00-0.045)
[2020-05-20] MEDS: INSULIN REGULAR 100 UNIT/ML SUBCUT SCH ×2 (16:33→21:03)
[2020-05-20] MEDS: ASCORBIC ACID 500 MG TABLET PO SCH (21:00)
[2020-05-21] MEDS: INSULIN REGULAR 100 UNIT/ML SUBCUT SCH ×6 (00:02→20:57)
[2020-05-21] MEDS: oxyCODONE/ACETAMINOPHEN 5-325 MG TABLET PO PRN ×4 (05:28→20:58)
[2020-05-21 05:58] LABS: Basophils % 0.1 % (0.0-0.8); Hematocrit 36.2 VOL% (42.0-52.0); Hemoglobin 11.8 GM/DL (14.0-18.0); Immature Granulocytes % 0.8 %; Lymphocytes # 0.4 10*3/uL (1.4-4.0); Lymphocytes % 1.6 % (21.2-54.2); Mean Corpuscular HGB Conc 32.6 GM/DL (32-36); Mean Corpuscular Volume 92.1 FL (87-102); Mean Platelet Volume 12.8 FL (9.6-12.0); Monocytes % 5.9 % (1.7-12.7); Neutrophils % 91.6 % (38.7-73.9); Platelet Count 138 T/CUMM (130-400); Red Blood Count 3.93 MC/CUMM (3.8-5.5); Red Cell Distribution Width 14.4 % (9.3-17.3); White Blood Count 23.7 T/CUMM (4-12)
[2020-05-21] MEDS ORDERED: FUROSEMIDE 40 MG/4 ML VIAL IV ONE (06:00)
[2020-05-21 06:19] LABS: Band Neutrophils 1 % (0-10); Lymphocytes 1 % (20-55); Segmented Neutrophils 94 % (50-85); Total Cells Counted 100
[2020-05-21 06:20] LABS: Platelet Estimate Normal
[2020-05-21 06:29] LABS: Albumin 3.5 G/DL (3.4-5.0); Albumin 3.6 G/DL (3.4-5.0); Bilirubin,Direct 0.16 MG/DL (0.0-0.20); Bilirubin,Indirect 1.1 MG/DL (0.0-1.0); Bilirubin,Total 0.7 MG/DL (0.2-1.0); Bilirubin,Total 1.3 MG/DL (0.2-1.0); CKMB % 1.7 %; Calcium 8.3 MG/DL (8.5-10.1); Osmolality,Calculated 289.7 MOS/KG (273-304); Total Protein 6.1 G/DL (6.4-8.3); Total Protein 6.5 G/DL (6.4-8.3)
[2020-05-21 06:33] LABS: Troponin I 3.7 NG/ML (0.00-0.045)
[2020-05-21] MEDS: ASCORBIC ACID 500 MG TABLET PO SCH ×2 (10:29→20:57)
[2020-05-21] MEDS: PANTOPRAZOLE 40 MG TABLET PO SCH (10:30)
[2020-05-21] MEDS: DOCUSATE SODIUM 100 MG CAPSULE PO SCH (10:30)
[2020-05-21] MEDS: ROSUVASTATIN 20 MG TABLET PO SCH (10:30)
[2020-05-21] MEDS: ASPIRIN EC 325 MG TABLET PO SCH (10:30)
[2020-05-21] MEDS: FERROUS SULFATE 325 MG TABLET PO SCH (10:31)
[2020-05-21] MEDS: CHLORHEXIDINE 0.12% ORAL RINSE 60 ML BOTTLE SWISH/SPIT SCH ×2 (10:34→20:59)
[2020-05-21] MEDS: METOPROLOL SUCCINATE XL 25 MG TABLET PO SCH (10:44)
[2020-05-22] MEDS: INSULIN REGULAR 100 UNIT/ML SUBCUT SCH ×7 (00:13→23:40)
[2020-05-22] MEDS: oxyCODONE/ACETAMINOPHEN 5-325 MG TABLET PO PRN ×3 (05:35→20:44)
[2020-05-22 05:40] LABS: Basophils % 0.1 % (0.0-0.8); Hematocrit 35.4 VOL% (42.0-52.0); Hemoglobin 11.4 GM/DL (14.0-18.0); Immature Granulocytes % 0.9 %; Immature Granulocytes Absolute 0.18 #; Lymphocytes # 0.5 10*3/uL (1.4-4.0); Lymphocytes % 2.5 % (21.2-54.2); Mean Corpuscular HGB Conc 32.2 GM/DL (32-36); Mean Corpuscular Volume 92.2 FL (87-102); Mean Platelet Volume 13.4 FL (9.6-12.0); Monocytes % 6.9 % (1.7-12.7); Neutrophils % 89.6 % (38.7-73.9); Platelet Count 139 T/CUMM (130-400); Red Blood Count 3.84 MC/CUMM (3.8-5.5); Red Cell Distribution Width 14.3 % (9.3-17.3)
[2020-05-22 06:06] LABS: Hypochromasia 1+; Lymphocytes 1 % (20-55); Segmented Neutrophils 96 % (50-85); Total Cells Counted 100
[2020-05-22 07:01] LABS: Albumin 3.3 G/DL (3.4-5.0); Bilirubin,Direct 0.12 MG/DL (0.0-0.20); Bilirubin,Total 0.4 MG/DL (0.2-1.0); Calcium 8.4 MG/DL (8.5-10.1); Osmolality,Calculated 287.8 MOS/KG (273-304); Total Protein 6.4 G/DL (6.4-8.3)
[2020-05-22 07:06] LABS: Alanine Aminotransferase 25 U/L (16-61); Albumin 3.2 G/DL (3.4-5.0); Alkaline Phosphatase 40 U/L (45-117); Aspartate Amino Transferase 26 U/L (0-37); Bilirubin,Indirect 0.6 MG/DL (0.0-1.0); Total Protein 6.5 G/DL (6.4-8.3)
[2020-05-22] MEDS: ROSUVASTATIN 20 MG TABLET PO SCH (08:54)
[2020-05-22] MEDS: PANTOPRAZOLE 40 MG TABLET PO SCH (08:54)
[2020-05-22] MEDS: FERROUS SULFATE 325 MG TABLET PO SCH (08:54)
[2020-05-22] MEDS: DOCUSATE SODIUM 100 MG CAPSULE PO SCH (08:54)
[2020-05-22] MEDS: ASPIRIN EC 325 MG TABLET PO SCH (08:54)
[2020-05-22] MEDS: MAGNESIUM HYDROXIDE SUSP 30 ML UDCUP PO PRN ×2 (08:54→20:41)
[2020-05-22] MEDS: METOPROLOL SUCCINATE XL 25 MG TABLET PO SCH (08:54)
[2020-05-22] MEDS: ASCORBIC ACID 500 MG TABLET PO SCH ×2 (08:54→20:44)
[2020-05-22] MEDS: CHLORHEXIDINE 0.12% ORAL RINSE 60 ML BOTTLE SWISH/SPIT SCH ×2 (08:57→20:40)
[2020-05-22] MEDS: ONDANSETRON 4 MG/2 ML VIAL IV PRN (17:43)
[2020-05-23] MEDS ORDERED: DEXTROSE 50% 25 GM/50 ML VIAL IV PRN (02:52)
[2020-05-23] MEDS: oxyCODONE/ACETAMINOPHEN 5-325 MG TABLET PO PRN ×2 (04:53→18:21)
[2020-05-23 06:29] LABS: Basophils % 0.2 % (0.0-0.8); Eosinophils % 0.1 % (0.00-10.9); Hematocrit 38.8 VOL% (42.0-52.0); Hemoglobin 12.3 GM/DL (14.0-18.0); Immature Granulocytes % 1.2 %; Immature Granulocytes Absolute 0.19 #; Lymphocytes # 0.9 10*3/uL (1.4-4.0); Lymphocytes % 5.5 % (21.2-54.2); Mean Corpuscular HGB Conc 31.7 GM/DL (32-36); Mean Corpuscular Volume 92.8 FL (87-102); Mean Platelet Volume 13.4 FL (9.6-12.0); Monocytes % 13.6 % (1.7-12.7); Neutrophils % 79.4 % (38.7-73.9); Platelet Count 153 T/CUMM (130-400); Red Blood Count 4.18 MC/CUMM (3.8-5.5); Red Cell Distribution Width 14.4 % (9.3-17.3)
[2020-05-23 06:46] LABS: Calcium 8.4 MG/DL (8.5-10.1); Osmolality,Calculated 285.7 MOS/KG (273-304)
[2020-05-23 06:57] LABS: Hypochromasia 1+
[2020-05-23 06:58] LABS: Microcytosis Slight; Ovalocytes Slight; Platelet Estimate Adequate
[2020-05-23] MEDS ORDERED: DASATINIB PO SCH (07:30)
[2020-05-23] MEDS: ASPIRIN EC 325 MG TABLET PO SCH (08:21)
[2020-05-23] MEDS: ROSUVASTATIN 20 MG TABLET PO SCH ×2 (08:22→21:24)
[2020-05-23] MEDS: DOCUSATE SODIUM 100 MG CAPSULE PO SCH (08:22)
[2020-05-23] MEDS: ASCORBIC ACID 500 MG TABLET PO SCH ×2 (08:23→21:24)
[2020-05-23] MEDS: PANTOPRAZOLE 40 MG TABLET PO SCH (08:23)
[2020-05-23] MEDS: FERROUS SULFATE 325 MG TABLET PO SCH (08:23)
[2020-05-23] MEDS: INSULIN REGULAR 100 UNIT/ML SUBCUT SCH ×4 (08:33→21:26)
[2020-05-23] MEDS ORDERED: DASATINIB 20 MG PO SCH (09:00)
[2020-05-23] MEDS: CHLORHEXIDINE 0.12% ORAL RINSE 60 ML BOTTLE SWISH/SPIT SCH ×2 (09:20→21:26)
[2020-05-23] MEDS: ONDANSETRON 4 MG/2 ML VIAL IV PRN (18:21)
[2020-05-23] MEDS: MAGNESIUM HYDROXIDE SUSP 30 ML UDCUP PO PRN (23:55)
[2020-05-23] MEDS: ACETAMINOPHEN 325 MG TABLET PO PRN (23:55)
[2020-05-24 05:36] LABS: Basophils % 0.3 % (0.0-0.8); Eosinophils # 0.1 10*3/uL (0.0-0.87); Eosinophils % 0.4 % (0.00-10.9); Hematocrit 37.6 VOL% (42.0-52.0); Hemoglobin 11.8 GM/DL (14.0-18.0); Immature Granulocytes % 1.6 %; Immature Granulocytes Absolute 0.25 #; Lymphocytes # 1.1 10*3/uL (1.4-4.0); Lymphocytes % 7.1 % (21.2-54.2); Mean Corpuscular HGB Conc 31.4 GM/DL (32-36); Mean Corpuscular Volume 95.7 FL (87-102); Mean Platelet Volume 12.8 FL (9.6-12.0); Neutrophils % 76.6 % (38.7-73.9); Platelet Count 188 T/CUMM (130-400); Red Blood Count 3.93 MC/CUMM (3.8-5.5); Red Cell Distribution Width 14.6 % (9.3-17.3)
[2020-05-24] MEDS: oxyCODONE/ACETAMINOPHEN 5-325 MG TABLET PO PRN (05:57)
[2020-05-24 06:15] LABS: Calcium 8.6 MG/DL (8.5-10.1); Osmolality,Calculated 281.8 MOS/KG (273-304)
[2020-05-24 06:21] LABS: Alanine Aminotransferase 21 U/L (16-61); Albumin 3.2 G/DL (3.4-5.0); Alkaline Phosphatase 43 U/L (45-117); Aspartate Amino Transferase 16 U/L (0-37); Bilirubin,Indirect 0.6 MG/DL (0.0-1.0); Blood Urea Nitrogen 35 MG/DL (7-18); Calcium 8.4 MG/DL (8.5-10.1); Estimated Glom Filtration Rate 75 ML/MIN; Glucose 115 MG/DL (74-106); Osmolality,Calculated 281.8 MOS/KG (273-304); Total Protein 6.7 G/DL (6.4-8.3)
[2020-05-24 06:26] LABS: Troponin I 0.989 NG/ML (0.00-0.045)
[2020-05-24] MEDS ORDERED: LACTULOSE 20 GM/30 ML UDCUP PO PRN (07:36)
[2020-05-24] MEDS: INSULIN REGULAR 100 UNIT/ML SUBCUT SCH ×4 (08:09→21:06)
[2020-05-24] MEDS ORDERED: DASATINIB PO SCH (09:00)
[2020-05-24] MEDS: ASCORBIC ACID 500 MG TABLET PO SCH ×2 (09:15→21:06)
[2020-05-24] MEDS: FERROUS SULFATE 325 MG TABLET PO SCH (09:15)
[2020-05-24] MEDS: PANTOPRAZOLE 40 MG TABLET PO SCH (09:16)
[2020-05-24] MEDS: ASPIRIN EC 325 MG TABLET PO SCH (09:16)
[2020-05-24] MEDS: DOCUSATE SODIUM 100 MG CAPSULE PO SCH (09:16)
[2020-05-24] MEDS: CHLORHEXIDINE 0.12% ORAL RINSE 60 ML BOTTLE SWISH/SPIT SCH ×2 (09:16→21:04)
[2020-05-24] MEDS: METOPROLOL SUCCINATE XL 25 MG TABLET PO SCH (09:16)
[2020-05-24] MEDS: POLYETHYLENE GLYCOL POWDER 17 GM PACK PO SCH (09:22)
[2020-05-24] MEDS: ACETAMINOPHEN 325 MG TABLET PO PRN (21:05)
[2020-05-24] MEDS: ROSUVASTATIN 20 MG TABLET PO SCH (21:05)
[2020-05-25] MEDS: oxyCODONE/ACETAMINOPHEN 5-325 MG TABLET PO PRN (01:48)
[2020-05-25] MEDS ORDERED: NITROGLYCERIN SL 0.4 MG TABLET SL PRN (02:13)
[2020-05-25] MEDS ORDERED: CLORAZEPATE 7.5 MG TABLET PO ONE (02:30)
[2020-05-25 03:08] LABS: Basophils % 0.2 % (0.0-0.8); Eosinophils # 0.2 10*3/uL (0.0-0.87); Hematocrit 32.5 VOL% (42.0-52.0); Hemoglobin 10.5 GM/DL (14.0-18.0); Immature Granulocytes % 2.4 %; Immature Granulocytes Absolute 0.35 #; Lymphocytes # 1.2 10*3/uL (1.4-4.0); Mean Corpuscular HGB Conc 32.3 GM/DL (32-36); Mean Corpuscular Volume 92.6 FL (87-102); Mean Platelet Volume 12.6 FL (9.6-12.0); Monocytes % 13.7 % (1.7-12.7); NRBC # 0.02 10*3/uL; Neutrophils % 74.7 % (38.7-73.9); Platelet Count 186 T/CUMM (130-400); Red Blood Count 3.51 MC/CUMM (3.8-5.5); Red Cell Distribution Width 14.6 % (9.3-17.3); White Blood Count 14.6 T/CUMM (4-12)
[2020-05-25 03:24] LABS: Albumin 2.7 G/DL (3.4-5.0); Bilirubin,Direct 0.16 MG/DL (0.0-0.20); Bilirubin,Indirect 0.4 MG/DL (0.0-1.0); Bilirubin,Total 0.6 MG/DL (0.2-1.0); Calcium 8.1 MG/DL (8.5-10.1); Osmolality,Calculated 279.1 MOS/KG (273-304); Total Protein 6.2 G/DL (6.4-8.3)
[2020-05-25] MEDS ORDERED: DASATINIB 20 MG PO SCH (09:00)
[2020-05-25] MEDS: PANTOPRAZOLE 40 MG TABLET PO SCH (09:21)
[2020-05-25] MEDS: METOPROLOL SUCCINATE XL 25 MG TABLET PO SCH (09:21)
[2020-05-25] MEDS: ASPIRIN EC 325 MG TABLET PO SCH (09:21)
[2020-05-25] MEDS: DOCUSATE SODIUM 100 MG CAPSULE PO SCH (09:21)
[2020-05-25] MEDS: ASCORBIC ACID 500 MG TABLET PO SCH (09:21)
[2020-05-25] MEDS: POLYETHYLENE GLYCOL POWDER 17 GM PACK PO SCH (09:22)
[2020-05-25] MEDS: CHLORHEXIDINE 0.12% ORAL RINSE 60 ML BOTTLE SWISH/SPIT SCH (09:24)
[2020-05-25] MEDS: INSULIN REGULAR 100 UNIT/ML SUBCUT SCH ×2 (09:30→14:11)
[2020-05-25 11:22] VITALS: BP 106/70
[2020-05-25] MEDS: ACETAMINOPHEN 325 MG TABLET PO PRN (13:40)
== END 2020-05-25 14:00 | disposition home health service (06) | DRG 236 ==
LOC: N.4E 05-18 09:02 → N.CVR 05-19 11:04 → N.TELES 05-20 13:09

== ENCOUNTER 2020-05-28 23:23 | Inpatient (IN) ==
[2020-05-28] MEDS ORDERED: ALBUTEROL/IPRATROPIUM 3 ML NEB RESP TX STA (23:57)
[2020-05-29] MEDS ORDERED: ACETAMINOPHEN 500 MG TABLET PO STA (00:14)
[2020-05-29] MEDS ORDERED: ACETAMINOPHEN 500 MG TABLET ONE (00:15)
[2020-05-29 00:18] LABS: Basophils % 0.3 % (0.0-0.8); Eosinophils # 0.2 10*3/uL (0.0-0.87); Eosinophils % 2.1 % (0.00-10.9); Hematocrit 33.5 VOL% (42.0-52.0); Hemoglobin 10.7 GM/DL (14.0-18.0); Immature Granulocytes Absolute 0.44 #; Lymphocytes # 0.9 10*3/uL (1.4-4.0); Lymphocytes % 8.5 % (21.2-54.2); Mean Corpuscular HGB Conc 31.9 GM/DL (32-36); Mean Corpuscular Volume 92.3 FL (87-102); Mean Platelet Volume 10.3 FL (9.6-12.0); Monocytes % 11.5 % (1.7-12.7); Neutrophils % 73.6 % (38.7-73.9); Platelet Count 296 T/CUMM (130-400); Red Blood Count 3.63 MC/CUMM (3.8-5.5); Red Cell Distribution Width 14.8 % (9.3-17.3); White Blood Count 11.1 T/CUMM (4-12)
[2020-05-29 00:29] LABS: INR 1.3; PT Patient Result 13.6 SECS (9.8-11.9)
[2020-05-29 00:39] LABS: Albumin 2.9 G/DL (3.4-5.0); Bilirubin,Total 0.4 MG/DL (0.2-1.0); Calcium 8.6 MG/DL (8.5-10.1)
[2020-05-29 01:07] LABS: Apearance,Urine CLEAR (Clear); Bacteria,Urine Occasional /HPF (Few); Bilirubin,Urine Negative (Negative); Blood, Urine Negative (Negative); Glucose,Urine (UA) Negative (Negative); Ketones,Urine Negative (Negative); Nitrite,Urine Negative (Negative); Protein,Urine Negative; RBC,Urine <1 /HPF (0-4); Urine Color Yellow (Yellow); Urine Specific Gravity 1.014 (1.001-1.035); Urine Urobilinogen < 2.0 EU/DL (0.2-1.0); WBC,Urine 2 /HPF (0-6)
[2020-05-29] MEDS ORDERED: PIPERACILLIN/TAZOBACTAM 3,375 MG in SODIUM CHLORIDE 0.9% 100 ML IV STA (01:14)
[2020-05-29] MEDS ORDERED: ACETAMINOPHEN 325 MG TABLET PO PRN (03:42)
[2020-05-29] MEDS ORDERED: GLUCAGON 1 MG VIAL IM PRN (03:42)
[2020-05-29] MEDS ORDERED: DEXTROSE 50% 25 GM/50 ML VIAL IV PRN (03:42)
[2020-05-29] MEDS ORDERED: MORPHINE 4 MG/1 ML VIAL IV PRN (03:42)
[2020-05-29] MEDS ORDERED: ONDANSETRON 4 MG/2 ML VIAL IV PRN (03:42)
[2020-05-29] MEDS ORDERED: hydrALAZINE 20 MG/1 ML VIAL IV PRN (03:42)
[2020-05-29] MEDS: ALBUTEROL/IPRATROPIUM 3 ML NEB RESP TX SCH ×3 (07:10→20:04)
[2020-05-29] MEDS ORDERED: PROMETHAZINE 25 MG TABLET PO PRN (08:23)
[2020-05-29] MEDS ORDERED: DASATINIB PO SCH (08:30)
[2020-05-29] MEDS: METOPROLOL SUCCINATE XL 25 MG TABLET PO SCH (08:39)
[2020-05-29] MEDS: ASPIRIN EC 325 MG TABLET PO SCH (08:39)
[2020-05-29] MEDS: FUROSEMIDE 40 MG/4 ML VIAL IV SCH ×2 (08:39→17:20)
[2020-05-29] MEDS: ROSUVASTATIN 20 MG TABLET PO SCH (08:39)
[2020-05-29] MEDS: ASCORBIC ACID 500 MG TABLET PO SCH ×2 (08:42→20:35)
[2020-05-29] MEDS: ENOXAPARIN 40 MG/0.4 ML SYRINGE SUBCUT SCH (08:42)
[2020-05-29] MEDS ORDERED: DASATINIB 20 MG PO SCH (09:00)
[2020-05-29] MEDS: PIPERACILLIN/TAZOBACTAM 3,375 MG in SODIUM CHLORIDE 0.9% 100 ML IV SCH ×2 (10:59→17:20)
[2020-05-30] MEDS: ALBUTEROL/IPRATROPIUM 3 ML NEB RESP TX SCH ×2 (01:24→07:40)
[2020-05-30] MEDS: PIPERACILLIN/TAZOBACTAM 3,375 MG in SODIUM CHLORIDE 0.9% 100 ML IV SCH ×2 (02:10→11:11)
[2020-05-30] MEDS ORDERED: metOLazone 5 MG TABLET PO SCH (07:30)
[2020-05-30] MEDS: METOPROLOL SUCCINATE XL 25 MG TABLET PO SCH (09:48)
[2020-05-30] MEDS: ASCORBIC ACID 500 MG TABLET PO SCH (09:48)
[2020-05-30] MEDS: ASPIRIN EC 325 MG TABLET PO SCH (09:49)
[2020-05-30] MEDS: ENOXAPARIN 40 MG/0.4 ML SYRINGE SUBCUT SCH (09:49)
[2020-05-30] MEDS: FUROSEMIDE 40 MG/4 ML VIAL IV SCH (10:18)
[2020-05-30] MEDS: ROSUVASTATIN 20 MG TABLET PO SCH (10:21)
[2020-05-30 11:42] VITALS: BP 108/61
== END 2020-05-30 12:37 | disposition home health service (06) | DRG 186 ==
LOC: EDBD → EDUNIT# → N.ED 23:23 → N.EDINP 05-29 03:42 → N.4E 05-29 05:09
PROVIDERS: ADMIT Internal Medicine; ATTEND Internal Medicine

== ENCOUNTER 2020-05-31 17:12 | Observation (INO) ==
[2020-05-31 18:12] LABS: Basophils % 0.3 % (0.0-0.8); Eosinophils # 0.3 10*3/uL (0.0-0.87); Eosinophils % 2.4 % (0.00-10.9); Hematocrit 32.3 VOL% (42.0-52.0); Hemoglobin 10.2 GM/DL (14.0-18.0); Immature Granulocytes % 1.3 %; Immature Granulocytes Absolute 0.13 #; Lymphocytes # 0.8 10*3/uL (1.4-4.0); Lymphocytes % 7.2 % (21.2-54.2); Mean Corpuscular HGB Conc 31.6 GM/DL (32-36); Mean Corpuscular Volume 92.3 FL (87-102); Mean Platelet Volume 10.3 FL (9.6-12.0); Monocytes % 9.1 % (1.7-12.7); Neutrophils % 79.7 % (38.7-73.9); Platelet Count 302 T/CUMM (130-400); Red Cell Distribution Width 14.5 % (9.3-17.3); White Blood Count 10.4 T/CUMM (4-12)
[2020-05-31 18:24] LABS: INR 1.3; PT Patient Result 14.1 SECS (9.8-11.9); Partial Thromboplastin Time 29.5 SECS (23.9-33.8)
[2020-05-31 18:28] LABS: Albumin 2.8 G/DL (3.4-5.0); Bilirubin,Total 0.4 MG/DL (0.2-1.0); Calcium 8.8 MG/DL (8.5-10.1)
[2020-05-31 18:31] LABS: Bilirubin,Urine Negative (Negative); Blood, Urine Negative (Negative); Glucose,Urine (UA) Negative (Negative); Ketones,Urine Negative (Negative); Mucus,Urine Occasional /LPF (Occasional); Nitrite,Urine Negative (Negative); Protein,Urine Negative; Urine Appearance CLEAR (Clear); Urine Color Straw (Yellow); Urine Specific Gravity 1.009 (1.001-1.035); Urine Urobilinogen < 2.0 EU/DL (0.2-1.0)
[2020-05-31] MEDS ORDERED: ONDANSETRON 4 MG/2 ML VIAL IV STA (18:42)
[2020-05-31] MEDS ORDERED: GLUCAGON 1 MG VIAL IM PRN (21:14)
[2020-05-31] MEDS ORDERED: DEXTROSE 50% 25 GM/50 ML VIAL IV PRN (21:14)
[2020-05-31] MEDS ORDERED: ONDANSETRON 4 MG/2 ML VIAL IV PRN (21:14)
[2020-05-31] MEDS ORDERED: ACETAMINOPHEN 325 MG TABLET PO PRN (21:14)
[2020-05-31] MEDS ORDERED: NITROGLYCERIN SL 0.4 MG TABLET SL PRN (21:20)
[2020-05-31] MEDS ORDERED: guaiFENesin/CODEINE 5 ML LIQUID PO PRN (21:20)
[2020-05-31] MEDS: PIPERACILLIN/TAZOBACTAM 3,375 MG in SODIUM CHLORIDE 0.9% 100 ML IV SCH (22:06)
[2020-05-31] MEDS: BENZONATATE 100 MG CAPSULE PO SCH (22:07)
[2020-05-31] MEDS: ENOXAPARIN 40 MG/0.4 ML SYRINGE SUBCUT SCH (22:08)
[2020-05-31] MEDS ORDERED: ALBUTEROL/IPRATROPIUM 3 ML NEB RESP TX ONE (23:18)
[2020-06-01] MEDS: ALBUTEROL/IPRATROPIUM 3 ML NEB RESP TX SCH ×2 (00:35→07:29)
[2020-06-01] MEDS: oxyCODONE/ACETAMINOPHEN 5-325 MG TABLET PO PRN ×3 (01:40→21:39)
[2020-06-01 07:08] LABS: Basophils % 0.4 % (0.0-0.8); Eosinophils # 0.3 10*3/uL (0.0-0.87); Eosinophils % 3.5 % (0.00-10.9); Hematocrit 32.2 VOL% (42.0-52.0); Immature Granulocytes % 1.3 %; Immature Granulocytes Absolute 0.12 #; Lymphocytes # 0.8 10*3/uL (1.4-4.0); Lymphocytes % 9.1 % (21.2-54.2); Mean Corpuscular HGB Conc 31.1 GM/DL (32-36); Mean Corpuscular Volume 92.8 FL (87-102); Mean Platelet Volume 9.9 FL (9.6-12.0); Monocytes % 10.9 % (1.7-12.7); Neutrophils % 74.8 % (38.7-73.9); Platelet Count 292 T/CUMM (130-400); Red Blood Count 3.47 MC/CUMM (3.8-5.5); Red Cell Distribution Width 14.6 % (9.3-17.3); White Blood Count 9.2 T/CUMM (4-12)
[2020-06-01 07:30] LABS: Albumin 2.7 G/DL (3.4-5.0); Bilirubin,Total 1.2 MG/DL (0.2-1.0); Calcium 8.8 MG/DL (8.5-10.1); Osmolality,Calculated 272.1 MOS/KG (273-304); Total Protein 6.7 G/DL (6.4-8.3)
[2020-06-01] MEDS: PIPERACILLIN/TAZOBACTAM 3,375 MG in SODIUM CHLORIDE 0.9% 100 ML IV SCH ×2 (08:50→16:46)
[2020-06-01] MEDS: METOPROLOL SUCCINATE XL 25 MG TABLET PO SCH (08:59)
[2020-06-01] MEDS: ASCORBIC ACID 500 MG TABLET PO SCH ×2 (08:59→21:39)
[2020-06-01] MEDS: ROSUVASTATIN 20 MG TABLET PO SCH (08:59)
[2020-06-01] MEDS: ASPIRIN EC 325 MG TABLET PO SCH (08:59)
[2020-06-01] MEDS: BENZONATATE 100 MG CAPSULE PO SCH ×3 (08:59→21:39)
[2020-06-01] MEDS ORDERED: FUROSEMIDE 40 MG TABLET PO SCH (09:00)
[2020-06-01] MEDS: FUROSEMIDE 40 MG/4 ML VIAL IV SCH (13:46)
[2020-06-01] MEDS: ENOXAPARIN 40 MG/0.4 ML SYRINGE SUBCUT SCH (21:48)
[2020-06-02] MEDS: PIPERACILLIN/TAZOBACTAM 3,375 MG in SODIUM CHLORIDE 0.9% 100 ML IV SCH ×3 (00:46→17:15)
[2020-06-02 04:04] LABS: Basophils % 0.4 % (0.0-0.8); Eosinophils # 0.3 10*3/uL (0.0-0.87); Eosinophils % 3.1 % (0.00-10.9); Hematocrit 31.3 VOL% (42.0-52.0); Immature Granulocytes % 0.9 %; Immature Granulocytes Absolute 0.08 #; Lymphocytes # 0.9 10*3/uL (1.4-4.0); Lymphocytes % 9.4 % (21.2-54.2); Mean Corpuscular HGB Conc 31.9 GM/DL (32-36); Mean Corpuscular Volume 90.2 FL (87-102); Mean Platelet Volume 9.9 FL (9.6-12.0); Neutrophils % 76.2 % (38.7-73.9); Platelet Count 298 T/CUMM (130-400); Red Blood Count 3.47 MC/CUMM (3.8-5.5); Red Cell Distribution Width 14.3 % (9.3-17.3); White Blood Count 9.4 T/CUMM (4-12)
[2020-06-02 04:38] LABS: Calcium 9.1 MG/DL (8.5-10.1); Osmolality,Calculated 278.7 MOS/KG (273-304)
[2020-06-02] MEDS ORDERED: POTASSIUM CHLORIDE 20 MEQ TABLET PO ONE (07:10)
[2020-06-02] MEDS: FUROSEMIDE 40 MG/4 ML VIAL IV SCH (09:46)
[2020-06-02] MEDS: BENZONATATE 100 MG CAPSULE PO SCH ×3 (09:49→21:11)
[2020-06-02] MEDS: ASCORBIC ACID 500 MG TABLET PO SCH ×2 (09:49→21:11)
[2020-06-02] MEDS: ASPIRIN EC 325 MG TABLET PO SCH (09:49)
[2020-06-02] MEDS: METOPROLOL SUCCINATE XL 25 MG TABLET PO SCH (09:49)
[2020-06-02] MEDS: ROSUVASTATIN 20 MG TABLET PO SCH (09:49)
[2020-06-02] MEDS: ALBUTEROL/IPRATROPIUM 3 ML NEB RESP TX SCH ×2 (13:10→19:32)
[2020-06-02] MEDS: DORNASE ALFA 2.5 MG/2.5 ML VIAL RESP TX SCH ×2 (13:15→19:37)
[2020-06-02] MEDS: MONTELUKAST 10 MG TABLET PO SCH (13:26)
[2020-06-02] MEDS: methylPREDNISolone 4 MG TABLET PO SCH ×2 (13:26→21:11)
[2020-06-02] MEDS: oxyCODONE/ACETAMINOPHEN 5-325 MG TABLET PO PRN (15:48)
[2020-06-02] MEDS: ENOXAPARIN 40 MG/0.4 ML SYRINGE SUBCUT SCH (21:10)
[2020-06-03] MEDS: ALBUTEROL/IPRATROPIUM 3 ML NEB RESP TX SCH ×4 (00:19→19:28)
[2020-06-03] MEDS: PIPERACILLIN/TAZOBACTAM 3,375 MG in SODIUM CHLORIDE 0.9% 100 ML IV SCH ×3 (00:56→16:28)
[2020-06-03 04:21] LABS: Basophils % 0.2 % (0.0-0.8); Eosinophils % 0.1 % (0.00-10.9); Hematocrit 30.8 VOL% (42.0-52.0); Immature Granulocytes % 0.8 %; Immature Granulocytes Absolute 0.08 #; Lymphocytes # 0.5 10*3/uL (1.4-4.0); Lymphocytes % 4.4 % (21.2-54.2); Mean Corpuscular HGB Conc 32.5 GM/DL (32-36); Mean Corpuscular Volume 90.6 FL (87-102); Mean Platelet Volume 10.2 FL (9.6-12.0); Monocytes % 4.7 % (1.7-12.7); Neutrophils % 89.8 % (38.7-73.9); Platelet Count 302 T/CUMM (130-400); White Blood Count 10.3 T/CUMM (4-12)
[2020-06-03 04:30] LABS: Calcium 9.1 MG/DL (8.5-10.1); Osmolality,Calculated 278.8 MOS/KG (273-304)
[2020-06-03 04:44] LABS: Hypochromasia 1+; Lymphocytes 3 % (20-55); Microcytosis Slight; Platelet Estimate Adequate; Segmented Neutrophils 94 % (50-85); Total Cells Counted 100
[2020-06-03] MEDS: DORNASE ALFA 2.5 MG/2.5 ML VIAL RESP TX SCH ×2 (07:35→19:36)
[2020-06-03] MEDS: ASCORBIC ACID 500 MG TABLET PO SCH ×2 (09:46→20:45)
[2020-06-03] MEDS: methylPREDNISolone 4 MG TABLET PO SCH ×2 (09:46→20:44)
[2020-06-03] MEDS: ROSUVASTATIN 20 MG TABLET PO SCH (09:46)
[2020-06-03] MEDS: MONTELUKAST 10 MG TABLET PO SCH (09:46)
[2020-06-03] MEDS: BENZONATATE 100 MG CAPSULE PO SCH ×3 (09:46→20:45)
[2020-06-03] MEDS: ASPIRIN EC 325 MG TABLET PO SCH (09:47)
[2020-06-03] MEDS: METOPROLOL SUCCINATE XL 25 MG TABLET PO SCH (09:47)
[2020-06-03] MEDS: FUROSEMIDE 40 MG/4 ML VIAL IV SCH (10:47)
[2020-06-03] MEDS ORDERED: CLORAZEPATE 7.5 MG TABLET PO PRN (10:57)
[2020-06-03] MEDS ORDERED: PROMETHAZINE 25 MG TABLET PO PRN (10:57)
[2020-06-03] MEDS: oxyCODONE/ACETAMINOPHEN 5-325 MG TABLET PO PRN (13:59)
[2020-06-03] MEDS: CLOPIDOGREL 75 MG TABLET PO SCH (13:59)
[2020-06-03] MEDS: ENOXAPARIN 40 MG/0.4 ML SYRINGE SUBCUT SCH (20:49)
[2020-06-04] MEDS: ALBUTEROL/IPRATROPIUM 3 ML NEB RESP TX SCH ×2 (01:04→07:15)
[2020-06-04] MEDS: PIPERACILLIN/TAZOBACTAM 3,375 MG in SODIUM CHLORIDE 0.9% 100 ML IV SCH ×2 (01:23→08:34)
[2020-06-04] MEDS: DORNASE ALFA 2.5 MG/2.5 ML VIAL RESP TX SCH (07:15)
[2020-06-04 08:21] VITALS: BP 152/86
[2020-06-04] MEDS: methylPREDNISolone 4 MG TABLET PO SCH (08:33)
[2020-06-04] MEDS: ROSUVASTATIN 20 MG TABLET PO SCH (08:33)
[2020-06-04] MEDS: METOPROLOL SUCCINATE XL 25 MG TABLET PO SCH (08:34)
[2020-06-04] MEDS: BENZONATATE 100 MG CAPSULE PO SCH (08:34)
[2020-06-04] MEDS: ASCORBIC ACID 500 MG TABLET PO SCH (08:34)
[2020-06-04] MEDS: MONTELUKAST 10 MG TABLET PO SCH (08:34)
[2020-06-04] MEDS: CLOPIDOGREL 75 MG TABLET PO SCH (08:34)
[2020-06-04] MEDS: oxyCODONE/ACETAMINOPHEN 5-325 MG TABLET PO PRN (08:36)
[2020-06-04] MEDS ORDERED: DOCUSATE SODIUM 100 MG CAPSULE PO SCH (09:00)
[2020-06-04] MEDS ORDERED: FUROSEMIDE 40 MG TABLET PO SCH (09:00)
[2020-06-04] MEDS ORDERED: ASPIRIN CHEW 81 MG TABLET PO SCH (09:00)
== END 2020-06-04 10:35 | disposition home or self-care (01) ==
LOC: EDUNIT# → EDBD → N.EDINP 17:12 → N.ED 17:12 → N.TELEN 06-01 13:53
PROVIDERS: ADMIT Internal Medicine; ATTEND Internal Medicine

== ENCOUNTER 2020-08-25 11:45 | Observation (INO) ==
[2020-08-25 12:43] LABS: Alanine Aminotransferase 23 U/L (16-61); Albumin 3.2 G/DL (3.4-5.0); Alkaline Phosphatase 69 U/L (45-117); Aspartate Amino Transferase 24 U/L (0-37); Bilirubin,Total < 0.39 MG/DL (0.2-1.0); Blood Urea Nitrogen 18 MG/DL (7-18); Calcium 8.7 MG/DL (8.5-10.1); Estimated Glom Filtration Rate 136 ML/MIN; Glucose 95 MG/DL (74-106); Total Protein 6.5 G/DL (6.4-8.3)
[2020-08-25 13:10] LABS: Basophils % 0.3 % (0.0-0.8); Eosinophils % 0.3 % (0.00-10.9); Hematocrit 50.1 VOL% (42.0-52.0); Hemoglobin 16.1 GM/DL (14.0-18.0); Immature Granulocytes % 0.9 %; Lymphocytes # 0.6 10*3/uL (1.4-4.0); Mean Corpuscular HGB Conc 32.1 GM/DL (32-36); Mean Corpuscular Volume 89.9 FL (87-102); Mean Platelet Volume 11.4 FL (9.6-12.0); Monocytes % 6.2 % (1.7-12.7); Neutrophils % 87.3 % (38.7-73.9); Platelet Count 168 T/CUMM (130-400); Red Blood Count 5.57 MC/CUMM (3.8-5.5); Red Cell Distribution Width 18.7 % (9.3-17.3); White Blood Count 11.4 T/CUMM (4-12)
[2020-08-25] MEDS ORDERED: NITROGLYCERIN SL 0.4 MG TABLET SL ONE (13:30)
[2020-08-25] MEDS ORDERED: NITROGLYCERIN SL 0.4 MG TABLET SL STA (14:21)
[2020-08-25] MEDS ORDERED: ONDANSETRON 4 MG/2 ML VIAL IV PRN (14:53)
[2020-08-25] MEDS ORDERED: ALUMINUM/MAGNES/SIMETH MAX STR 30 ML UDCUP PO PRN (14:53)
[2020-08-25] MEDS ORDERED: DOCUSATE SODIUM 100 MG CAPSULE PO PRN (14:53)
[2020-08-25] MEDS ORDERED: ZALEPLON 5 MG CAPSULE PO PRN (14:53)
[2020-08-25] MEDS ORDERED: hydrALAZINE 20 MG/1 ML VIAL IV PRN (14:53)
[2020-08-25] MEDS ORDERED: MAGNESIUM SULF RIDER 4 GM in PREMIX 1 EACH IV PRN (14:53)
[2020-08-25] MEDS ORDERED: MAGNESIUM SULF RIDER 2 GM in PREMIX 1 EACH IV PRN (14:53)
[2020-08-25] MEDS ORDERED: ALBUTEROL/IPRATROPIUM 3 ML NEB RESP TX PRN (15:12)
[2020-08-25] MEDS ORDERED: LEVOFLOXACIN INJ 500 MG in PREMIX 1 EACH IV SCH (15:30)
[2020-08-25 17:12] LABS: Troponin I 0.017 NG/ML (0.00-0.045)
[2020-08-25 19:14] LABS: Troponin I 0.019 NG/ML (0.00-0.045)
[2020-08-25] MEDS ORDERED: DASATINIB 20 MG PO SCH ×2 (20:00)
[2020-08-25] MEDS ORDERED: ASPIRIN CHEW 81 MG TABLET PO SCH (21:00)
[2020-08-25] MEDS ORDERED: ENOXAPARIN 40 MG/0.4 ML SYRINGE SUBCUT SCH (21:00)
[2020-08-25] MEDS ORDERED: CLOPIDOGREL 75 MG TABLET PO SCH (21:30)
[2020-08-25] MEDS ORDERED: methylPREDNISolone 4 MG TABLET PO SCH (21:30)
[2020-08-26 07:01] LABS: Basophils % 0.4 % (0.0-0.8); Eosinophils % 0.5 % (0.00-10.9); Hemoglobin 15.2 GM/DL (14.0-18.0); Immature Granulocytes % 0.7 %; Immature Granulocytes Absolute 0.06 #; Lymphocytes # 0.8 10*3/uL (1.4-4.0); Lymphocytes % 9.9 % (21.2-54.2); Mean Corpuscular HGB Conc 31.7 GM/DL (32-36); Mean Corpuscular Volume 91.8 FL (87-102); Mean Platelet Volume 11.4 FL (9.6-12.0); Monocytes % 9.4 % (1.7-12.7); Neutrophils % 79.1 % (38.7-73.9); Platelet Count 143 T/CUMM (130-400); Red Blood Count 5.23 MC/CUMM (3.8-5.5); Red Cell Distribution Width 18.2 % (9.3-17.3)
[2020-08-26] MEDS ORDERED: DIAZEPAM 5 MG TABLET PO ONE (07:22)
[2020-08-26 07:32] LABS: Calcium 8.8 MG/DL (8.5-10.1); Osmolality,Calculated 287.1 MOS/KG (273-304); Risk Ratio 2.1
[2020-08-26] MEDS ORDERED: FUROSEMIDE 40 MG TABLET PO SCH (08:00)
[2020-08-26] MEDS ORDERED: METOPROLOL SUCCINATE XL 25 MG TABLET PO SCH (08:00)
[2020-08-26] MEDS ORDERED: methylPREDNISolone 4 MG TABLET PO SCH (08:00)
[2020-08-26] MEDS ORDERED: BENZONATATE 100 MG CAPSULE PO SCH (08:00)
[2020-08-26] MEDS ORDERED: MONTELUKAST 10 MG TABLET PO SCH (08:00)
[2020-08-26] MEDS ORDERED: ROSUVASTATIN 20 MG TABLET PO SCH (08:00)
[2020-08-26] MEDS ORDERED: PANTOPRAZOLE 40 MG TABLET PO SCH (09:00)
[2020-08-26] MEDS ORDERED: ASCORBIC ACID 500 MG TABLET PO SCH (11:00)
[2020-08-26 11:42] VITALS: BP 111/63
== END 2020-08-26 13:50 | disposition home or self-care (01) ==
LOC: N.EDINP 11:45 → N.ED 11:45 → N.TELES 18:11
PROVIDERS: ADMIT Internal Medicine Cardiovascular Disease; ATTEND Internal Medicine Cardiovascular Disease

== ENCOUNTER 2020-11-29 07:09 | Inpatient (IN) ==
[2020-11-24 12:40] LABS: Basophils # 0.1 10*3/uL (0.0-0.2); Basophils % 0.5 % (0.0-0.8); Eosinophils # 0.1 10*3/uL (0.0-0.87); Eosinophils % 1.1 % (0.00-10.9); Hematocrit 46.1 VOL% (42.0-52.0); Hemoglobin 14.6 GM/DL (14.0-18.0); Immature Granulocytes % 1.2 %; Immature Granulocytes Absolute 0.12 #; Lymphocytes # 1.1 10*3/uL (1.4-4.0); Lymphocytes % 11.4 % (21.2-54.2); Mean Corpuscular HGB Conc 31.7 GM/DL (32-36); Mean Corpuscular Volume 99.6 FL (87-102); Mean Platelet Volume 11.6 FL (9.6-12.0); Monocytes % 8.5 % (1.7-12.7); Neutrophils % 77.3 % (38.7-73.9); Platelet Count 171 T/CUMM (130-400); Red Blood Count 4.63 MC/CUMM (3.8-5.5); Red Cell Distribution Width 15.9 % (9.3-17.3); White Blood Count 9.8 T/CUMM (4-12)
[2020-11-24 12:51] LABS: INR 1.1; PT Patient Result 12.2 SECS (9.8-11.9); Partial Thromboplastin Time 27.5 SECS (23.9-33.8)
[2020-11-24 13:19] LABS: Albumin 3.7 G/DL (3.4-5.0); Bilirubin,Total 0.7 MG/DL (0.2-1.0); Calcium 9.1 MG/DL (8.5-10.1); Osmolality,Calculated 284.4 MOS/KG (273-304); Potassium 3.9 MMOL/L (3.5-5.1); Total Protein 6.7 G/DL (5.0-7.5)
[2020-11-29] MEDS: LACTATED RINGERS 1,000 ML IV SCH ×3 (07:50→14:52)
[2020-11-29] MEDS ORDERED: DIAZEPAM 5 MG TABLET PO ONE (08:38)
[2020-11-29] MEDS ORDERED: FAMOTIDINE 20 MG TABLET PO ONE (08:38)
[2020-11-29] MEDS ORDERED: HEPARIN/NACL 0.9% 2 UNITS/ML 500 ML IV ONE (08:51)
[2020-11-29] MEDS ORDERED: LIDOCAINE 1% 5 ML VIAL ONE (08:51)
[2020-11-29] MEDS ORDERED: fentaNYL 100 MCG/2 ML VIAL ONE ×2 (08:51→10:33)
[2020-11-29] MEDS ORDERED: NITROGLYCERIN DRIP 50 MG/250 ML BOTTLE IV ONE (09:51)
[2020-11-29] MEDS ORDERED: PHENYLEPHRINE DRIP 20 MG/250 ML PREMIX IV ONE (09:51)
[2020-11-29] MEDS ORDERED: HEPARIN 5,000 UNIT/1 ML VIAL ONE (09:52)
[2020-11-29] MEDS ORDERED: LIDOCAINE 1% 20 ML VIAL ONE (09:52)
[2020-11-29] MEDS ORDERED: ETOMIDATE 40 MG/20 ML VIAL IV ONE (10:51)
[2020-11-29] MEDS ORDERED: LACTATED RINGERS 1,000 ML IV ONE (10:51)
[2020-11-29] MEDS ORDERED: HYDROCORTISONE 100 MG VIAL ONE (10:51)
[2020-11-29] MEDS ORDERED: PHENYLEPHRINE 1 MG/10 ML SYRINGE IV ONE ×2 (10:51→11:05)
[2020-11-29] MEDS ORDERED: SODIUM CHLORIDE 0.9% 1,000 ML IV ONE ×2 (10:51→12:03)
[2020-11-29] MEDS ORDERED: ONDANSETRON 4 MG/2 ML VIAL ONE (10:51)
[2020-11-29] MEDS ORDERED: ROCURONIUM 50 MG/5 ML VIAL IV ONE (10:51)
[2020-11-29] MEDS ORDERED: SEVOFLURANE 1 UNIT/15 MINUTE INH ONE ×10 (10:51→12:45)
[2020-11-29] MEDS ORDERED: LIDOCAINE 2% 5 ML VIAL ONE (10:51)
[2020-11-29] MEDS ORDERED: propofoL 200 MG/20 ML VIAL IV ONE ×2 (10:51→11:05)
[2020-11-29] MEDS ORDERED: HEPARIN 10,000 UNIT/10 ML VIAL ONE (10:53)
[2020-11-29] MEDS ORDERED: PROTAMINE SULFATE 50 MG/5 ML VIAL IV ONE (11:53)
[2020-11-29] MEDS ORDERED: PROMETHAZINE 25 MG/1 ML VIAL IM PRN (12:35)
[2020-11-29] MEDS ORDERED: DEXTROSE 50% 25 GM/50 ML VIAL IV PRN (12:35)
[2020-11-29] MEDS ORDERED: HYDROmorphone 2 MG/1 ML VIAL IV PRN ×2 (12:35)
[2020-11-29] MEDS ORDERED: oxyCODONE/ACETAMINOPHEN 5-325 MG TABLET PO PRN ×2 (12:35)
[2020-11-29] MEDS ORDERED: GLUCAGON 1 MG VIAL IM PRN (12:35)
[2020-11-29] MEDS ORDERED: ONDANSETRON 4 MG/2 ML VIAL IV PRN (12:35)
[2020-11-29] MEDS ORDERED: NALOXONE 0.4 MG/ML VIAL IV PRN (12:35)
[2020-11-29] MEDS ORDERED: metOLazone 5 MG TABLET PO PRN (12:37)
[2020-11-29] MEDS ORDERED: BENZONATATE 100 MG CAPSULE PO PRN (12:37)
[2020-11-29] MEDS ORDERED: DEXAMETHASONE 4 MG/1 ML VIAL ONE (12:50)
[2020-11-29] MEDS ORDERED: CLOPIDOGREL 75 MG TABLET PO SCH (14:00)
[2020-11-29] MEDS ORDERED: [UNRECOGNIZED DRUG - OTHER] IV SCH (14:30)
[2020-11-29] MEDS ORDERED: DEXTRAN IV SCH (14:30)
[2020-11-29 14:36] VITALS: BP 125/78
[2020-11-29] MEDS: NITROPRUSSIDE 100 MG in DEXTROSE 5% 250 ML IV SCH ×2 (14:53→15:59)
[2020-11-29] MEDS: PHENYLEPHRINE DRIP 40 MG/250 ML PREMIX IV SCH (14:53)
[2020-11-29] MEDS ORDERED: DEXTRAN-40 10% /NS 500 ML IV SCH (15:00)
[2020-11-29 17:39] LABS: Bilirubin,Urine Negative (Negative); Blood, Urine Negative (Negative); Glucose,Urine (UA) Negative (Negative); Ketones,Urine Negative (Negative); Nitrite,Urine Negative (Negative); Protein,Urine 30 MG/DL; RBC,Urine 1 /HPF (0-4); Urine Appearance CLEAR (Clear); Urine Color Yellow (Yellow); Urine Specific Gravity 1.025 (1.001-1.035); Urine Urobilinogen < 2.0 EU/DL (0.2-1.0); WBC,Urine <1 /HPF (0-6)
[2020-11-29] MEDS: DASATINIB 20 MG PO SCH (22:16)
[2020-11-30] MEDS: LACTATED RINGERS 1,000 ML IV SCH (00:55)
[2020-11-30] MEDS ORDERED: METOPROLOL SUCCINATE XL 25 MG TABLET PO SCH ×2 (08:00→09:15)
[2020-11-30] MEDS ORDERED: FUROSEMIDE 40 MG TABLET PO SCH (08:00)
[2020-11-30] MEDS ORDERED: methylPREDNISolone 4 MG TABLET PO SCH (08:00)
[2020-11-30] MEDS ORDERED: DOCUSATE SODIUM 100 MG/10 ML UDCUP PO SCH (09:00)
[2020-11-30] MEDS ORDERED: DOCUSATE SODIUM 100 MG CAPSULE PO SCH (09:00)
[2020-11-30] MEDS: ASPIRIN EC 81 MG TABLET PO SCH (09:57)
[2020-11-30] MEDS: ROSUVASTATIN 20 MG TABLET PO SCH (09:57)
[2020-11-30] MEDS: DOCUSATE SODIUM 100 MG/10 ML UDCUP PO SCH (09:57)
[2020-11-30] MEDS: CLOPIDOGREL 75 MG TABLET PO SCH (09:58)
[2020-11-30] MEDS: MONTELUKAST 10 MG TABLET PO SCH (09:58)
[2020-11-30] MEDS ORDERED: METOPROLOL SUCCINATE XL 25 MG TABLET PO ONE (10:00)
[2020-11-30] MEDS ORDERED: DEXAMETHASONE 10 MG/1 ML VIAL IV SCH ×2 (10:30→20:01)
[2020-11-30] MEDS: METOPROLOL TARTRATE 5 MG/5 ML VIAL IV SCH ×2 (12:01→17:20)
[2020-11-30] MEDS: PHENYLEPHRINE DRIP 40 MG/250 ML PREMIX IV SCH (12:04)
[2020-11-30] MEDS: NITROPRUSSIDE 100 MG in DEXTROSE 5% 250 ML IV SCH ×2 (12:54→17:07)
[2020-11-30 13:41] LABS: Basophils % 0.1 % (0.0-0.8); Hematocrit 41.2 VOL% (42.0-52.0); Hemoglobin 13.4 GM/DL (14.0-18.0); Immature Granulocytes % 0.9 %; Immature Granulocytes Absolute 0.17 #; Lymphocytes # 0.4 10*3/uL (1.4-4.0); Lymphocytes % 2.2 % (21.2-54.2); Mean Corpuscular HGB Conc 32.5 GM/DL (32-36); Mean Corpuscular Volume 97.2 FL (87-102); Mean Platelet Volume 11.1 FL (9.6-12.0); Monocytes % 4.5 % (1.7-12.7); Neutrophils % 92.3 % (38.7-73.9); Platelet Count 180 T/CUMM (130-400); Red Blood Count 4.24 MC/CUMM (3.8-5.5); Red Cell Distribution Width 15.3 % (9.3-17.3); White Blood Count 19.1 T/CUMM (4-12)
[2020-11-30 14:02] LABS: Albumin 3.1 G/DL (3.4-5.0); Bilirubin,Total 0.7 MG/DL (0.2-1.0); Calcium 8.9 MG/DL (8.5-10.1); Osmolality,Calculated 283.5 MOS/KG (273-304); Potassium 3.7 MMOL/L (3.5-5.1); Total Protein 6.7 G/DL (5.0-7.5)
[2020-11-30 14:03] LABS: Lymphocytes 3 % (20-55); Total Cells Counted 100
[2020-11-30 14:04] LABS: Segmented Neutrophils 94 % (50-85)
[2020-11-30 14:07] LABS: Platelet Estimate Normal
[2020-11-30 14:09] LABS: Anisocytosis 1+; Hypochromasia 1+
[2020-11-30 14:10] LABS: Burr Cells 1+; Polychromasia 1+
[2020-11-30] MEDS ORDERED: NITROPRUSSIDE 50 MG/2 ML VIAL ONE (17:03)
[2020-11-30 18:31] LABS: ABG Base Excess 3.8 MMOL/L (-2.5-2.5); ABG HCO3 27.7 MMOL/L (20-26); ABG Oxygen Saturation 94.9 % (95-100); ABG PCO2 38.9 MM HG (35-48); ABG PO2 70.5 MM HG (80-95); ABG TCO2 23.7 MMOL/L (23-27); Allen Test Positive; Pt O2 Delivery Device BIPAP
[2020-11-30] MEDS ORDERED: ETOMIDATE 20 MG/10 ML VIAL IV ONE ×2 (19:38→19:40)
[2020-11-30] MEDS ORDERED: VECURONIUM 10 MG VIAL IV ONE ×2 (19:38→19:43)
[2020-11-30] MEDS ORDERED: LORazepam 2 MG/1 ML VIAL ONE (21:04)
[2020-11-30 21:14] LABS: ABG Base Excess 4.7 MMOL/L (-2.5-2.5); ABG HCO3 26.6 MMOL/L (20-26); ABG Oxygen Saturation 99.4 % (95-100); ABG PCO2 31.2 MM HG (35-48); ABG PH 7.548 (7.35-7.45); ABG PO2 291.1 MM HG (80-95); ABG TCO2 27.5 MMOL/L (23-27)
[2020-11-30] MEDS ORDERED: GLUCAGON 1 MG VIAL IM PRN (21:58)
[2020-11-30] MEDS ORDERED: DEXTROSE 50% 25 GM/50 ML VIAL IV PRN (21:58)
[2020-12-01] MEDS: LORazepam 2 MG/1 ML VIAL IV PRN ×3 (00:11→21:14)
[2020-12-01] MEDS: DEXAMETHASONE 10 MG/1 ML VIAL IV SCH ×4 (00:11→22:06)
[2020-12-01] MEDS: METOPROLOL TARTRATE 5 MG/5 ML VIAL IV SCH ×4 (02:14→17:44)
[2020-12-01] MEDS: INSULIN LISPRO 100 UNIT/ML SUBCUT SCH ×4 (03:16→18:00)
[2020-12-01 03:44] LABS: ABG Base Excess 5.2 MMOL/L (-2.5-2.5); ABG Oxygen Saturation 99.1 % (95-100); ABG PCO2 24.6 MM HG (35-48); ABG PO2 143.6 MM HG (80-95); ABG TCO2 25.8 MMOL/L (23-27)
[2020-12-01 03:45] LABS: ABG PH 7.625 (7.35-7.45)
[2020-12-01] MEDS ORDERED: LORazepam 2 MG/1 ML VIAL ONE ×2 (05:02→20:48)
[2020-12-01 05:04] LABS: Basophils % 0.2 % (0.0-0.8); Hematocrit 41.3 VOL% (42.0-52.0); Hemoglobin 13.5 GM/DL (14.0-18.0); Immature Granulocytes % 0.9 %; Immature Granulocytes Absolute 0.18 #; Lymphocytes # 0.3 10*3/uL (1.4-4.0); Lymphocytes % 1.8 % (21.2-54.2); Mean Corpuscular HGB Conc 32.7 GM/DL (32-36); Mean Corpuscular Volume 96.5 FL (87-102); Mean Platelet Volume 11.4 FL (9.6-12.0); Monocytes % 6.3 % (1.7-12.7); Neutrophils % 90.8 % (38.7-73.9); Platelet Count 185 T/CUMM (130-400); Red Blood Count 4.28 MC/CUMM (3.8-5.5); Red Cell Distribution Width 15.2 % (9.3-17.3); White Blood Count 19.4 T/CUMM (4-12)
[2020-12-01 05:25] LABS: Hypochromasia 1+; Lymphocytes 4 % (20-55); Microcytosis 1+; Segmented Neutrophils 91 % (50-85); Total Cells Counted 100
[2020-12-01 05:26] LABS: Ovalocytes Slight
[2020-12-01 05:37] LABS: Osmolality,Calculated 287.7 MOS/KG (273-304); Potassium 3.3 MMOL/L (3.5-5.1)
[2020-12-01] MEDS: DOCUSATE SODIUM 100 MG/10 ML UDCUP PO SCH (09:09)
[2020-12-01] MEDS: ROSUVASTATIN 20 MG TABLET PO SCH (09:09)
[2020-12-01] MEDS: CLOPIDOGREL 75 MG TABLET PO SCH (09:10)
[2020-12-01] MEDS: MONTELUKAST 10 MG TABLET PO SCH (09:10)
[2020-12-01] MEDS: ASPIRIN EC 81 MG TABLET PO SCH (09:10)
[2020-12-01 09:26] LABS: ABG Base Excess 6.3 MMOL/L (-2.5-2.5); ABG HCO3 30.1 MMOL/L (20-26); ABG Oxygen Saturation 99.4 % (95-100); ABG PCO2 34.6 MM HG (35-48); ABG PH 7.529 (7.35-7.45); ABG TCO2 24.5 MMOL/L (23-27); Pt O2 Delivery Device Ventilator
[2020-12-01] MEDS ORDERED: NITROPRUSSIDE 50 MG/2 ML VIAL ONE (09:26)
[2020-12-01] MEDS: NITROPRUSSIDE 100 MG in DEXTROSE 5% 250 ML IV SCH ×2 (09:54→12:43)
[2020-12-01] MEDS: MANNITOL IV SCH ×3 (09:56→22:06)
[2020-12-01] MEDS: PHENYLEPHRINE DRIP 40 MG/250 ML PREMIX IV SCH ×2 (12:07→19:13)
[2020-12-01 12:40] LABS: ABG HCO3 29.9 MMOL/L (20-26); ABG Oxygen Saturation 99.9 % (95-100); ABG PCO2 27.6 MM HG (35-48); ABG TCO2 22.4 MMOL/L (23-27); Pt O2 Delivery Device Ventilator
[2020-12-01 12:42] LABS: ABG PH 7.593 (7.35-7.45)
[2020-12-01] MEDS: DASATINIB 20 MG PO SCH (21:20)
[2020-12-02] MEDS: METOPROLOL TARTRATE 5 MG/5 ML VIAL IV SCH ×3 (01:33→12:07)
[2020-12-02] MEDS: INSULIN LISPRO 100 UNIT/ML SUBCUT SCH ×3 (01:33→12:07)
[2020-12-02 02:41] LABS: ABG Base Excess 4.5 MMOL/L (-2.5-2.5); ABG HCO3 28.4 MMOL/L (20-26); ABG Oxygen Saturation 97.2 % (95-100); ABG PCO2 23.9 MM HG (35-48); ABG PO2 76.8 MM HG (80-95); ABG TCO2 20.6 MMOL/L (23-27); Allen Test Positive; Pt O2 Delivery Device Ventilator
[2020-12-02 02:43] LABS: ABG PH 7.615 (7.35-7.45)
[2020-12-02 04:57] LABS: Hematocrit 42.5 VOL% (42.0-52.0); Hemoglobin 13.7 GM/DL (14.0-18.0); Immature Granulocytes % 0.7 %; Lymphocytes # 0.3 10*3/uL (1.4-4.0); Lymphocytes % 1.9 % (21.2-54.2); Mean Corpuscular HGB Conc 32.2 GM/DL (32-36); Mean Corpuscular Volume 97.7 FL (87-102); Monocytes % 7.9 % (1.7-12.7); Neutrophils % 89.5 % (38.7-73.9); Platelet Count 175 T/CUMM (130-400); Red Blood Count 4.35 MC/CUMM (3.8-5.5); Red Cell Distribution Width 15.3 % (9.3-17.3); White Blood Count 13.5 T/CUMM (4-12)
[2020-12-02 05:14] LABS: Calcium 10.3 MG/DL (8.5-10.1); Osmolality,Calculated 322.4 MOS/KG (273-304); Potassium 2.7 MMOL/L (3.5-5.1)
[2020-12-02 05:43] LABS: Band Neutrophils 3 % (0-10); Lymphocytes 4 % (20-55); Segmented Neutrophils 86 % (50-85); Total Cells Counted 100
[2020-12-02 05:44] LABS: Hypochromasia 1+; Microcytosis 1+; Ovalocytes Slight; Platelet Estimate Adequate
[2020-12-02] MEDS: MANNITOL IV SCH ×2 (05:52→09:31)
[2020-12-02] MEDS: DEXAMETHASONE 10 MG/1 ML VIAL IV SCH ×2 (05:53→14:09)
[2020-12-02] MEDS: MONTELUKAST 10 MG TABLET PO SCH (08:49)
[2020-12-02] MEDS: ASPIRIN EC 81 MG TABLET PO SCH (08:49)
[2020-12-02] MEDS: ROSUVASTATIN 20 MG TABLET PO SCH (08:49)
[2020-12-02] MEDS: DOCUSATE SODIUM 100 MG/10 ML UDCUP PO SCH (08:50)
[2020-12-02] MEDS: CLOPIDOGREL 75 MG TABLET PO SCH (08:50)
[2020-12-02] MEDS ORDERED: POTASSIUM CHLORIDE RIDER 10 MEQ in PREMIX 1 EACH IV PRN (09:34)
[2020-12-02] MEDS: PHENYLEPHRINE DRIP 40 MG/250 ML PREMIX IV SCH (12:07)
[2020-12-02] MEDS: NITROPRUSSIDE 100 MG in DEXTROSE 5% 250 ML IV SCH (12:08)
== END 2020-12-02 14:56 | disposition expired | DRG 37 ==
LOC: N.OR 07:09 → N.SDSINP 07:13 → EDSTATUS 08:45 → N.SDSINP 12:35 → N.ICU 13:15
PROVIDERS: ADMIT Surgery; ATTEND Surgery